=== PATIENT | female | born 1945 | race Caucasian/White ===

== ENCOUNTER 2016-12-05 13:31 | Emergency (ER) ==
[2016-12-05 13:42] VITALS: BP 149/79; TEMP 98.3; BMI 32.2
--- NOTE | 2016-12-05 13:51 | ED.PDOC ---
General ED Provider: Dr. TICO CASAS JR Chief Complaint: Back Pain Stated Complaint: COMPLAINS OF THORACIC BACK PAIN RADIATING AROUND TO RIGHT UPPER ABDOMEN. STATES SHE HAS BEEN HAVING ABDOMEN DISTENSION AND SAW DERRICK AT THE CLINIC, WAS SUPPOSED TO HAVE A CT DONE AND MISSED HER APPT. HAS BEEN TAKING FLEXERIL FOR THE BACK [ End ]since 11/24/16 98.3 110 20 93% 147/79 10 right back pain radiating to side[ End ] Time Seen by Physician: 13:51 Mode of Arrival: Wheelchair Information Source: Patient Exam Limitations: No limitations Primary Care Provider: KEYONA DEVI Nursing and Triage Documentation Reviewed and Agree: No Review of Systems - Review Of Systems Constitutional: Reports: No symptoms Eyes: Reports: No symptoms Ears, Nose, Mouth, Throat: Reports: No symptoms Respiratory: Reports: No symptoms Cardiac: Reports: No symptoms GI: Reports: No symptoms : Reports: No symptoms Musculoskeletal: Reports: Back pain (htn depr factor v leiden right ankle surg DRINKS 3-5 SHOTS OF VODKA A DAY ) Skin: Reports: No symptoms Neurological: Reports: No symptoms Endocrine: Reports: No symptoms Hematologic/Lymphatic: Reports: No symptoms All Other Systems: Other Past Medical History - Past Medical History Previously Healthy: No Endocrine: Reports: DM 2, Other (factor 5 leiden dx 2013) Cardiovascular: Reports: Hypertension, DVT (each leg) Respiratory: Reports: None, PE (each lung) Hematological: Reports: Other ( factor v leiden ) Gastrointestinal: Reports: None Genitourinary: Reports: None Neuro/Psych: Reports: None, Depression Musculoskeletal: Reports: None Cancer: Reports: None Last Menstrual Period: NONE - Surgical History General Surgical History: Reports: Orthopedic (right ankle surg ), Unknown (on warfarin) - Family History Family History: Reports: Unknown - Social History Smoking Status: Current every day smoker Hx Substance Use: No Alcohol Screening: Occasionally (DRINKS 3-5 SHOTS OF VODKA A DAY) Physical Exam - Physical Exam Appearance: Ill-appearing Pain Distress: Moderate Eyes: FABBY, EOMI, Conjunctiva clear ENT: Ears normal, Nose normal, Oropharynx normal Neck: Supple Respiratory: Airway patent, Breath sounds clear, Breath sounds equal, Respirations nonlabored Cardiovascular: RRR, Pulses normal, No rub, No murmur GI/: Soft, No masses, Bowel sounds normal, No Organomegaly, Tender Musculoskeletal: Normal strength, ROM intact, No edema, No calf tenderness Skin: Warm, Dry, Normal color Neurological: Sensation intact, Motor intact, Reflexes intact, Cranial nerves intact, Alert, Oriented Psychiatric: Affect appropriate, Mood appropriate Critical Care Note - Critical Care Note Total Time (mins): 0 Course - Course Hematology/Chemistry: 12/05/16 14:07 12/05/16 14:07 Orders, Labs, Meds: Lab Review 12/05/16 12/05/16 14:07 15:40 WBC 9.09 RBC 4.39 Hgb 14.7 Hct 41.7 MCV 95.0 MCH 33.5 H MCHC 35.3 RDW Coeff of Violeta 13.8 Plt Count 383 Immature Gran % (Auto) 0.8 Neut % (Auto) 53.9 Lymph % (Auto) 37.3 [place] % (Auto) 7.3 Eos % (Auto) 0.0 Baso % (Auto) 0.7 Immature Gran # (Auto) 0.1 Neut # 4.9 Lymph # 3.4 [place] # 0.7 Eos # 0.0 Baso # 0.1 PT 31.7 H INR 3.08 Sodium 132 L Potassium 4.4 Chloride 94 L Carbon Dioxide 25 Anion Gap 17.4 BUN 37 H Creatinine 0.93 Estimated GFR (MDRD) 60.00 BUN/Creatinine Ratio 39.78 Glucose 83 Calcium 9.3 Total Bilirubin 0.29 AST 14 L ALT 11 L Alkaline Phosphatase 109 Total Protein 7.3 Albumin 3.6 Globulin 3.7 Albumin/Globulin Ratio 0.97 Amylase 40 Lipase 24 Urine Color Yellow Urine Clarity Cloudy Urine pH 5.0 Ur Specific [place] <=1.005 Urine Protein Negative Urine Glucose (UA) Negative Urine Ketones Negative Urine Blood 1+ Urine Nitrite Negative Urine Bilirubin Negative Urine Urobilinogen 0.2 Ur Leukocyte Esterase Trace Urine Microscopic WBC 2-5 Ur Squamous Epith Cells 20-30 Urine Bacteria 1+ Orders Category Date Time Status NPO REMINDER: IMAGING ONCE CARE 12/05/16 13:59 Completed ED IV/MEDIPORT/POWERPORT .ONCE EMERGENCY 12/05/16 13:57 Active AMYLASE Stat LAB 12/05/16 14:07 Completed CBC W/ AUTO DIFF Stat LAB 12/05/16 14:07 Completed COMPREHENSIVE METABOLIC PANEL Stat LAB 12/05/16 14:07 Completed LIPASE Stat LAB 12/05/16 14:07 Completed PT WITH INR Stat LAB 12/05/16 14:07 Completed URINALYSIS C & S IF INDICATED Stat LAB 12/05/16 15:40 Completed URINE CULTURE Stat LAB 12/05/16 15:40 Received 0.9 % Sodium Chloride [Saline Flush] MEDS 12/05/16 13:57 Discontinued 1 syr IVF PRN PRN Morphine Sulfate [Morphine 4 mg/ml Syringe] MEDS 12/05/16 16:34 Discontinued 4 mg IVP ONCE STA Ondansetron HCl/Pf [Zofran 4 mg/2 ml] MEDS 12/05/16 16:34 Discontinued 4 [address] IVP ONCE STA CT ABDOMEN/PELVIS W/WO CONTRAS Stat RADS 12/05/16 13:58 Completed Medications Discontinued Medications Generic Name Dose Route Start Last Admin Trade Name Freq PRN Reason Stop Dose Admin Morphine Sulfate 4 mg 12/05/16 16:34 12/05/16 17:03 Morphine 4 Mg/Ml Syringe IVP 12/05/16 16:35 4 mg ONCE STA Administration Ondansetron HCl 4 mg 12/05/16 16:34 12/05/16 17:03 Zofran 4 Mg/2 Ml IVP 12/05/16 16:35 4 mg ONCE STA Administration Sodium Chloride 1 syr 12/05/16 13:57 12/05/16 17:04 Saline Flush IVF 1 syr PRN PRN Administration To flush IV Vital Signs: Temp Pulse Resp BP Pulse Ox 12/05/16 13:33 98.3 F 110 H 20 149/79 H 93 L Departure - Departure Time of Disposition: 16:56 Disposition: HOME SELF-CARE Discharge Problem: Abdominal pain Instructions: Acute Abdominal Pain (ED) Condition: Good Pt referred to PMD for follow-up: Yes Additional Instructions: no kidney stones on CAT scan inflammation on left side will need repeat xrays when improved may continue macrobid few white cells present in urine continue extra clear liquid daily may use norco for pain with norco recommend daily stool softener Prescriptions: Hydrocodone Bit/Acetaminophen [[place] 5-325] 1 - 2 tab PO Q6HR PRN #12 tablet PRN Reason: pain Docusate Sodium [Colace] 100 mg PO DAILY #30 capsule Allergies/Adverse Reactions: Allergies No Known Allergies Allergy (Verified 12/05/16 13:40) Home Medications: Ambulatory Orders Citalopram Hydrobromide [Citalopram HBr] 40 mg PO DAILY 04/16/15 Lisinopril/Hydrochlorothiazide [Lisinopril-Hctz 10-12.5 mg Tab] 10 mg PO DAILY 04/16/15 Warfarin Sodium [Coumadin] 5 mg PO EVERY OTHER DAY 04/16/15 Warfarin Sodium [Coumadin] 6 mg PO EVERY OTHER DAY 04/16/15 Cholecalciferol (Vitamin D3) [Vitamin D] 50,000 unit PO WE 12/05/16 Docusate Sodium [Colace] 100 mg PO DAILY #30 capsule 12/05/16 Hydrocodone Bit/Acetaminophen [[place] 5-325] 1 - 2 tab PO Q6HR PRN #12 tablet Nitrofurantoin Monohyd/M-Cryst [Macrobid] 100 mg PO BID 12/05/16 Olanzapine [Zyprexa] 2.5 mg PO DAILY 12/05/16
[2016-12-05 14:16] LABS: BASOPHILS # (AUTO) 0.1 K/uL (0-0.2); BASOPHILS % (AUTO) 0.7 % (0.0-3.0); HEMATOCRIT 41.7 % (37.0-47.0); HEMOGLOBIN 14.7 g/dl (12.0-16.0); IMMATURE GRANULOCYTE % (AUTO) 0.8 % (0.0-5.0); LYMPHOCYTES # (AUTO) 3.4 K/uL (0.60-3.4); LYMPHOCYTES % (AUTO) 37.3 (10.0-50.0); MEAN CORPUSCULAR HEMOGLOBIN 33.5 pg (27.0-31.0); MEAN CORPUSCULAR HGB CONC 35.3 (31.8-35.4); MONOCYTES # (AUTO) 0.7 K/uL (0.4-2.0); MONOCYTES % (AUTO) 7.3 (0-10); NEUTROPHILS # (AUTO) 4.9 K/ul (2.0-6.9); NEUTROPHILS % (AUTO) 53.9; PLATELET COUNT 383 10^3/uL (140-440); RED BLOOD COUNT 4.39 10^6/ul (4.20-5.40); WHITE BLOOD COUNT 9.09 K/ul (4.6-10.2)
[2016-12-05 14:30] LABS: PROTHROMBIN TIME 31.7 SEC (9.3-11.0)
[2016-12-05 14:34] LABS: ALBUMIN 3.6 g/dL (3.4-5.0); ALBUMIN/GLOBULIN RATIO 0.97; ANION GAP 17.4; BILIRUBIN,TOTAL 0.29 mg/dL (0.00-1.20); BUN/CREATININE RATIO 39.78; CALCIUM 9.3 mg/dL (8.2-10.2); CREATININE 0.93 mg/dL (0.60-1.30); POTASSIUM 4.4 mmol/L (3.5-5.10); TOTAL PROTEIN 7.3 g/dL (5.8-8.1)
--- NOTE | 2016-12-05 15:38 | CT ---
Exam: Noncontrasted CT examination of the abdomen and pelvis followed by contrasted CT examination of the abdomen and pelvis. Comparison: 06/27/2010. Reason for exam: Right flank pain into abdomen with abdominal swelling. FINDINGS: Ground-glass / inflammatory changes in the left lower lobe seen on axial image #2. No fo ochoa consolidation or pleural effusion is seen in the partially imaged lung bases. The heart does not appear enlarged. The liver is unremarkable without intrahepatic mass lesion or intrahepatic ductal dilatation. The sp viri, adrenal glands, gallbladder, and pancreas are unremarkable. No hydronephrosis, hydroureter, o r nephrolithiasis. There are multiple loops of nondilated fluid filled small bowel seen throughout the abdomen. The ap pendix is unremarkable. No inflammatory changes are seen within the mesenteric fat. No intra-abdom inal free air or pelvic free fluid. The bladder is unremarkable. There is a small only fat containing periumbilical hernia. Age indeterminate vertebral body height loss at T11 and L1. There is vacuum disc phenomenon at L5-S 1. Impression: 1. No acute imaging findings are seen to explain the patient's symptomology. 2. Ground-glass / inflammatory changes in the left lower lobe. Recommend follow up imaging to docu ment stability / resolution.
[2016-12-05 16:04] LABS: BILIRUBIN,URINE Negative (NEGATIVE); KETONES,URINE Negative (NEGATIVE); LEUKOCYTE ESTERASE ,URINE Trace (NEGATIVE); NITRITE,URINE Negative (NEGATIVE); PROTEIN,URINE Negative (NEGATIVE); URINE, BLOOD 1+ (NEGATIVE)
[2016-12-05 16:13] LABS: ADD URINE MICROSCOPIC YES
[2016-12-05 16:16] LABS: BACTERIA,URINE 1+ (NOT PRESENT)
[2016-12-05] MEDS ORDERED: ZOFRAN 4 MG/2 ML IVP STA (16:34)
[2016-12-05] MEDS ORDERED: MORPHINE 4 MG/ML SYRINGE IVP STA (16:34)
== END 2016-12-05 17:36 | disposition home or self-care (01) ==
LOC: ED 13:31
DX: R10.11 Right upper quadrant pain (principal); M54.6 Pain in thoracic spine; R14.0 Abdominal distension (gaseous); E11.9 Type 2 diabetes mellitus without complications; I10 Essential (primary) hypertension; D68.51 Activated protein C resistance; Z86.718 Personal history of other venous thrombosis and embolism; Z79.01 Long term (current) use of anticoagulants; Z86.711 Personal history of pulmonary embolism; F17.210 Nicotine dependence, cigarettes, uncomplicated; Z79.899 Other long term (current) drug therapy
CPT/HCPCS: 36415; 80053; 81001; 82150; 83690; 85025; 85610; 87086; 96374; 96375; 99283

== ENCOUNTER 2017-01-01 08:56 | Outpatient (CLI) ==
--- NOTE | 2017-01-01 10:23 | CT ---
EXAM: CT of the chest with and without contrast History: Chest pain, distended stomach. Comparison: CT abdomen pelvis 12/05/2016, chest CT 09/22/2012 Technique: Multiplanar CT images through the thorax were obtained with and without the administrati on of IV contrast Findings: Heart size is within normal limits. No pericardial effusion. No pathologically enlarged thoracic lymph nodes. Biapical lung scarring. Scattered areas of subsegmental atelectasis. Minima l patchy right lung ground-glass infiltrates with 5-6 mm micronodules. 5 mm left upper lobe micronod ule Within the visualized upper abdomen, the liver is probably fatty. Tiny hiatal hernia. Mild compress ion deformity again seen at L1. Increased loss of height involving the T11 burst fracture and there is a new compression fracture involving the superior endplate of T9. Impression: 1. Minimal patchy right lung ground-glass infiltrates with associated micronodules could be infecti ous/inflammatory but recommend followup to document resolution. 5 mm left upper lobe micronodule al so warrants followup. 2. Small hiatal hernia. 3. Increased loss of height involving the T11 burst fracture and there is a new compression fractur e involving superior endplate of T9.
--- NOTE | 2017-01-01 11:29 | MAMMO ---
EXAM: Bilateral digital screening mammogram History: Screening Comparison: Bilateral mammogram 10/16/2012 Findings: MLO and CC views of bilateral breasts demonstrate scattered fibroglandular breast parench yma. Stable benign bilateral breast calcifications and left breast nodules. Biopsy clip again seen within the left breast No developing masses and no suspicious microcalcifications. Impression: Benign stable mammogram. Recommend followup routine screening mammography in 1 year. BIRADS 2
== END 2017-01-01 08:57 | disposition home or self-care (01) ==
LOC: RAD 08:56
PROVIDERS: ATTEND Physician Assistant
DX: Z12.31 Encounter for screening mammogram for malignant neoplasm of breast (principal); R93.8 Abnormal findings on diagnostic imaging of other specified body structures

== ENCOUNTER 2017-01-05 12:06 | Emergency (ER) ==
[2017-01-05 12:13] VITALS: BP 147/84; TEMP 98.3; BMI 32.4
[2017-01-05 12:51] LABS: BASOPHILS # (AUTO) 0.1 K/uL (0-0.2); BASOPHILS % (AUTO) 0.6 % (0.0-3.0); HEMATOCRIT 39.5 % (37.0-47.0); HEMOGLOBIN 13.9 g/dl (12.0-16.0); IMMATURE GRANULOCYTE % (AUTO) 1.1 % (0.0-5.0); LYMPHOCYTES # (AUTO) 3.5 K/uL (0.60-3.4); LYMPHOCYTES % (AUTO) 31.5 (10.0-50.0); MEAN CORPUSCULAR HEMOGLOBIN 33.5 pg (27.0-31.0); MEAN CORPUSCULAR HGB CONC 35.2 (31.8-35.4); MEAN CORPUSCULAR VOLUME 95.2 fl (81.0-99.0); MONOCYTES # (AUTO) 0.9 K/uL (0.4-2.0); MONOCYTES % (AUTO) 8.2 (0-10); NEUTROPHILS # (AUTO) 6.6 K/ul (2.0-6.9); NEUTROPHILS % (AUTO) 58.6; PLATELET COUNT 367 10^3/uL (140-440); RED BLOOD COUNT 4.15 10^6/ul (4.20-5.40)
[2017-01-05 13:10] LABS: ALBUMIN 3.5 g/dL (3.4-5.0); ALBUMIN/GLOBULIN RATIO 0.95; ANION GAP 16.2; BILIRUBIN,TOTAL 0.51 mg/dL (0.00-1.20); BUN/CREATININE RATIO 20.68; CALCIUM 9.2 mg/dL (8.2-10.2); CREATININE 0.87 mg/dL (0.60-1.30); POTASSIUM 4.2 mmol/L (3.5-5.10); TOTAL PROTEIN 7.2 g/dL (5.8-8.1)
[2017-01-05 13:41] LABS: PARTIAL THROMBOPLASTIN TIME 51.2 SEC (23.9-40.0)
[2017-01-05 13:43] LABS: PROTHROMBIN TIME 32.3 SEC (9.3-11.0)
--- NOTE | 2017-01-05 15:08 | CT ---
EXAM: CT head without contrast 04/06/2017. Sagittal and coronal reformatted images obtained HISTORY: Trauma COMPARISON: None. FINDINGS: There is no evidence of intracranial hemorrhage. The midline is maintained. There is no hydrocephalus. No cerebellar tonsillar ectopia. Evaluation of the calvarium shows no fracture. The mastoid air cells are normally pneumatized. IMPRESSION: Left periorbital and facial soft tissue swelling. This is only partially visualized. C T facial bones could be considered if clinically indicated. No acute intracranial abnormality.
--- NOTE | 2017-01-05 15:12 | CT ---
Exam: CT of the thoracic spine without intravenous contrast administration. Comparison: CT of the chest performed 01/01/2017. CT of the abdomen pelvis performed 12/05/2016. Reason for exam: Pain. FINDINGS: Similar appearing compression deformities in the lower thoracic spine at T9, T11, and L1. No new fracture or listhesis. The imaged osseous structures are diffusely osteopenic. There is mi ld central canal narrowing at the T10-11 interspace. Mild basilar atelectasis. Atherosclerotic dise ase is seen within the aorta. The articulating facets are intact. There is exaggeration of the thoracic kyphosis. Impression: 1. Similar appearing compression deformities in the thoracic spine at T9, T11, and L1. There not si gnificantly changed when compared to the CT examination of the chest performed on 01/01/2017. 2. Mild central canal narrowing at the T11 interspace. If clinical concern exists, MRI may be perf ormed. 3. No new fracture or listhesis in the thoracic spine. Report faxed to [phone] hours on 01/05/2017
--- NOTE | 2017-01-05 15:13 | CT ---
EXAM: CT of the abdomen pelvis with contrast History: Abdominal trauma. Comparison: CT abdomen pelvis 12/05/2016, chest CT 01/05/2017 Technique: Multiplanar CT images through the abdomen pelvis were obtained following administration of IV contrast Findings: A few small nodules seen within the visualized lower lungs. Subsegmental atelectasis see n at the lung bases. Please see dedicated chest CT done on the same day. Stable chronic compression fracture at L1. T11 compression fracture again noted with slight interval progression. There is a new mild compression fracture of T9. No discrete gallstones identified by CT. No focal liver or splenic lesions. Pancreas is unremarkab le. Atherosclerotic vascular calcifications. Adrenal glands are within normal limits. Kidneys are unremarkable. No bowel obstruction. Appendix is normal. No free air. No ascites. No bladder wa ll thickening. Atrophic uterus. No perirectal inflammation. Impression: 1. No acute intra-abdominal or pelvic process. 2. New compression fracture at T9. Progressive compression deformity at T11.
--- NOTE | 2017-01-05 15:13 | CT ---
EXAM: CT cervical spine. HISTORY: Trauma. TECHNIQUE: CT cervical spine without contrast. Detailed axial sections. Coronal and sagittal re-f ormations. COMPARISON: None FINDINGS: No fracture is identified. No loss of vertebral body height. Facet joints are covered. Lateral mas ses of C1 and C2 are normally aligned and the odontoid process is intact. There is diffuse degenera tive disc and facet disease, severe at some levels. There is mild anterior spondylolisthesis of C3 on C4 by about 0.2 cm possibly related to the regional severe facet arthropathy. The degenerative c hanges lead to multilevel central canal and neural foraminal stenosis which is relatively mild regar ding the central canals. The neural foramina at least on the right have moderate narrowing extendin g from C3 through approximately C5. The upper lung christy reveal irregular pleuroparenchymal thicke lawrence in the apices which may be related to fibrosis. Paraspinal soft tissues have no evidence of fl uid collection or inflammation. IMPRESSION: 1. No acute fracture identified. 2. Mild anterior subluxation of C3 on C4 by about 0.2 cm possibly related to the regional severe fa cet arthropathy.
--- NOTE | 2017-01-05 15:18 | CT ---
EXAM: CT of the maxillofacial region without contrast History: Facial trauma. Comparison: Head CT 01/05/2017 Technique: Multiplanar CT images through the maxillofacial region were obtained without the adminis tration of IV contrast Findings: Subcutaneous left cheek hematoma measuring 2.3 cm x 1.8 cm with significant surrounding i nflammation. There is left periorbital edema. The inflammation extends down the left side of the n geno and around the left submandibular gland and to the deeper fascial planes. Orbits are intact. Mild mucosal thickening of the paranasal sinuses. Nasal septum is bowed to the left. Bilateral ost iomeatal units are not occluded. Degenerative changes of the left mandibular joint. No fractures a re seen. Mastoid air cells are clear. Osteopenia. Degenerative changes of the cervical spine. Impression: 1. No acute fracture. 2. Left cheek subcutaneous hematoma. There is also extensive subcutaneous edema and inflammation o f the left face extending into the left neck region.
--- NOTE | 2017-01-05 15:19 | CT ---
EXAM: CT chest with intravenous contrast 01/05/2017. Sagittal and coronal reformatted images obtai jenelle HISTORY: Trauma COMPARISON: 01/05/2017, 01/01/2017 FINDINGS: The heart size appears within normal limits. No pericardial effusion. Bilateral apical scarring appears stable. There are scattered areas of ground-glass density with ass ociated micro nodules. This is unchanged as compared to examination performed 01/01/2017. This is likely infectious/inflammatory however follow-up recommend to document resolution. There is no pulmonary consolidation. No pleural effusion or pneumothorax. There are multiple partial compression fractures within the thoracic and lumbar spine. Please refer to report of CT thoracic spine for further evaluation. IMPRESSION: 1. No acute post traumatic cardiopulmonary process. No acute mediastinal vascular injury. 2. Multifocal atelectasis and scarring. 3. Scattered areas of ground-glass density with associated micro nodules. This was described on th e recent chest CT. This is indeterminate however likely infectious/inflammatory. Follow-up CT kvng mmend following appropriate medical management to document stability / resolution. 4. Multiple compression fractures of the spine. Please refer to report of CT thoracic spine and CT lumbar spine for further evaluation.
--- NOTE | 2017-01-05 15:21 | CT ---
Exam: CT exam of the lumbar spine without intravenous contrast. Comparison: 01/05/2017. Reason for exam: Pain. FINDINGS: Multilevel degenerative disease in the lumbar spine. There is similar appearing compress ion deformities at T11 and L1. Intervertebral body disc space height loss with vacuum disc phenomen on and L5, S1, not significantly changed from prior imaging. There is relative maintenance of the l umbar lordotic curve. Atherosclerotic disease is seen within the abdominal aorta. T10-T11: Mild central canal narrowing secondary to a similar appearing compression deformity in the T11 vertebral body. There is moderate foraminal stenosis secondary to facet hypertrophy. T11-T12: Small broad-based disc bulge with mild central canal narrowing. There is minimal foramina l stenosis secondary to facet hypertrophy and extruded disc. T12-L1: Small broad-based disc bulge with mild central canal narrowing and a similar appearing comp ression deformity of the L1 vertebral body. There is mild bilateral foraminal stenosis secondary to facet hypertrophy and extruded disc. L1-L2: Small broad-based disc bulge without significant central canal stenosis. There is mild to m oderate foraminal narrowing secondary to facet hypertrophy and compression deformity. L2-L3: Broad-based disc bulge with mild central canal narrowing and bilateral mild foraminal stenos is secondary to the extruded disc. L3-L4: Similar appearing anterior listhesis of L3 on L4 with mild to moderate central canal narrowi ng and foraminal stenosis secondary to extruded disc and facet hypertrophy. L4-L5: Small broad-based disc bulge with central canal narrowing and mild bilateral foraminal steno sis secondary to extruded disc and facet hypertrophy. L5-S1: Small broad-based disc bulge with central canal narrowing and moderate narrowing of the bila teral foramina secondary to extruded disc and facet hypertrophy. Impression: 1. Multilevel degenerative disease as described with central canal narrowing and foraminal stenosis. If clinical concern exists, MRI may be performed. 2. Similar appearing compression deformities at L1 and T11. There are not significantly changed wh en compared to the previous CT exam performed on 01/05/2017. 3. Atherosclerotic disease. 4. No new fracture or listhesis. Report faxed at [phone] hours on 01/05/2017.
--- NOTE | 2017-01-05 15:34 | ED.PDOC ---
General ED Provider: Dr. FARAZ GASTELUM Chief Complaint: Fall Stated Complaint: FALL FACIAL INJURY Time Seen by Physician: 12:06 (FELL 2 DAYS AGO NO L.O.C. ON COUMADIN) Mode of Arrival: Wheelchair Information Source: Patient Exam Limitations: No limitations Primary Care Provider: KOJO MCINTYRE Nursing and Triage Documentation Reviewed and Agree: Yes Trauma/Injury Complaint Exam - Trauma Complaint/Exam Location of Pain or Injury: Reports: Head, Face, Neck, Back Mechanism of Injury: Reports: Fall Onset/Duration: 2 DAYS SEE PHOTOS OF INJURY ON WARFARIN Symptoms Are: Still present Review of Systems - Review Of Systems Constitutional: Reports: No symptoms Eyes: Reports: No symptoms Ears, Nose, Mouth, Throat: Reports: Ear pain (FACIAL HEMATOMA SEE PHOTOS) Respiratory: Reports: No symptoms Cardiac: Reports: No symptoms GI: Reports: No symptoms : Reports: No symptoms Musculoskeletal: Reports: Back pain, Neck pain Skin: Reports: No symptoms Neurological: Reports: No symptoms Endocrine: Reports: No symptoms Hematologic/Lymphatic: Reports: No symptoms All Other Systems: Reviewed and Negative Past Medical History - Past Medical History Previously Healthy: No Endocrine: Reports: DM 2, Other (factor 5 leiden dx 2013) Cardiovascular: Reports: Hypertension, DVT (each leg) Respiratory: Reports: None, PE (each lung) Hematological: Reports: Other ( factor v leiden ) Gastrointestinal: Reports: None Genitourinary: Reports: None Neuro/Psych: Reports: None, Depression Musculoskeletal: Reports: None Cancer: Reports: None Last Menstrual Period: menopause Other Pertinent Past Medical History: htn depr factor v leiden right ankle surg - Surgical History General Surgical History: Reports: Orthopedic (right ankle surg ), Unknown (on warfarin) - Family History Family History: Reports: Unknown - Social History Smoking Status: Current every day smoker, Heavy tobacco smoker Hx Substance Use: No Alcohol Screening: Occasionally Physical Exam - Physical Exam Appearance: Well-appearing, No pain distress, Well-nourished Eyes: FABBY, EOMI (SUBCONJUCTIVAL HEMORRAGHE , PERRLA , EOMI , ) ENT: Ears normal, Nose normal, Oropharynx normal (FACIAL HEMATOMA PLEASE SEE PHOTOS) Respiratory: Airway patent, Breath sounds clear, Breath sounds equal, Respirations nonlabored Cardiovascular: RRR, Pulses normal, No rub, No murmur GI/: Soft, Nontender, No masses, Bowel sounds normal, No Organomegaly Musculoskeletal: Normal strength, ROM intact, No edema, No calf tenderness Skin: Warm, Dry, Normal color Neurological: Sensation intact, Motor intact, Reflexes intact, Cranial nerves intact, Alert, Oriented Psychiatric: Affect appropriate, Mood appropriate Interpretation - Radiology Interpretation Radiology Interpretation By: Radiologist Radiology Results: No acute changes Critical Care Note - Critical Care Note Total Time (mins): 0 Course - Course Hematology/Chemistry: 01/05/17 12:40 01/05/17 12:40 Orders, Labs, Meds: Lab Review 01/05/17 12:40 WBC 11.20 H RBC 4.15 L Hgb 13.9 Hct 39.5 MCV 95.2 MCH 33.5 H MCHC 35.2 RDW Coeff of Violeta 14.4 Plt Count 367 Immature Gran % (Auto) 1.1 Neut % (Auto) 58.6 Lymph % (Auto) 31.5 Bell % (Auto) 8.2 Eos % (Auto) 0.0 Baso % (Auto) 0.6 Immature Gran # (Auto) 0.1 Neut # 6.6 Lymph # 3.5 H Bell # 0.9 Eos # 0.0 Baso # 0.1 PT 32.3 H INR 3.14 APTT 51.2 H Sodium 130 L Potassium 4.2 Chloride 91 L Carbon Dioxide 27 Anion Gap 16.2 BUN 18 Creatinine 0.87 Estimated GFR (MDRD) 65.00 BUN/Creatinine Ratio 20.68 Glucose 100 Calcium 9.2 Total Bilirubin 0.51 AST 14 L ALT 9 L Alkaline Phosphatase 110 Total Protein 7.2 Albumin 3.5 Globulin 3.7 Albumin/Globulin Ratio 0.95 Orders Category Date Time Status NPO REMINDER: IMAGING ONCE CARE 01/05/17 12:41 Completed CBC W/ AUTO DIFF Stat LAB 01/05/17 12:40 Completed COMPREHENSIVE METABOLIC PANEL Stat LAB 01/05/17 12:40 Completed PARTIAL THROMBOPLASTIN TIME Stat LAB 01/05/17 12:40 Completed PT WITH INR Stat LAB 01/05/17 12:[address] ABDOMEN/PELVIS W CONTRAST Stat RADS 01/05/17 12:[address] CERVICAL SPINE W/O CONTRAST Stat RADS 01/05/17 12:[address] CHEST W/CONTRAST Stat RADS 01/05/17 12:[address] HEAD W/O CONTRAST Stat RADS 01/05/17 12:[address] LUMBAR SPINE W/O CONTRAST Stat RADS 01/05/17 12:[address] MAXILLOFACIAL W/O CONTRAST Stat RADS 01/05/17 12:[address] THORACIC SPINE W/O CONTRAST Stat RADS 01/05/17 12:42 Completed Vital Signs: Temp Pulse Resp BP Pulse Ox 01/05/17 12:06 98.3 F 101 H 20 147/84 H 97 Departure - Departure Time of Disposition: 15:41 Disposition: HOME SELF-CARE Discharge Problem: Facial hematoma Qualifiers: Encounter type: initial encounter Qualifier Code: ([id number]) Contusion of other part of head, initial encounter Compression fracture of thoracic vertebra Qualifiers: Encounter type: initial encounter Instructions: Hematoma (ED), Facial Contusion (ED) Condition: Good Pt referred to PMD for follow-up: No Additional Instructions: Please call your Family Physician as soon as possible to schedule a follow-up appointment. HIGHLY SUGGEST YOU OBTAIN MRI OF THORACIC AND LUMBAR SPINE Allergies/Adverse Reactions: Allergies No Known Allergies Allergy (Verified 01/05/17 12:16) Home Medications: Ambulatory Orders Citalopram Hydrobromide [Citalopram HBr] 40 mg PO DAILY 04/16/15 Lisinopril/Hydrochlorothiazide [Lisinopril-Hctz 10-12.5 mg Tab] 10 mg PO DAILY 04/16/15 Warfarin Sodium [Coumadin] 5 mg PO EVERY OTHER DAY 04/16/15 Warfarin Sodium [Coumadin] 6 mg PO EVERY OTHER DAY 04/16/15 Cholecalciferol (Vitamin D3) [Vitamin D] 50,000 unit PO WE 12/05/16 Disposition Discussed With: Patient
[2017-01-05] MEDS ORDERED: MORPHINE 4 MG/ML SYRINGE IM STA (15:53)
== END 2017-01-05 16:25 | disposition home or self-care (01) ==
LOC: ED 12:06
DX: S00.83XA Contusion of other part of head, initial encounter (principal); S22.009A Unspecified fracture of unspecified thoracic vertebra, initial encounter for closed fracture; H11.30 Conjunctival hemorrhage, unspecified eye; M54.9 Dorsalgia, unspecified; M54.2 Cervicalgia; F17.210 Nicotine dependence, cigarettes, uncomplicated; W19.XXXA Unspecified fall, initial encounter; Z79.01 Long term (current) use of anticoagulants
CPT/HCPCS: 36415; 80053; 85025; 85610; 85730; 96372; 99284

== ENCOUNTER 2017-01-19 13:11 | Outpatient (CLI) ==
[2017-01-19 13:39] LABS: BASOPHILS # (AUTO) 0.1 K/uL (0-0.2); BASOPHILS % (AUTO) 0.5 % (0.0-3.0); HEMATOCRIT 42.2 % (37.0-47.0); HEMOGLOBIN 14.9 g/dl (12.0-16.0); IMMATURE GRANULOCYTE % (AUTO) 0.9 % (0.0-5.0); LYMPHOCYTES % (AUTO) 26.9 (10.0-50.0); MEAN CORPUSCULAR HEMOGLOBIN 33.9 pg (27.0-31.0); MEAN CORPUSCULAR HGB CONC 35.3 (31.8-35.4); MEAN CORPUSCULAR VOLUME 96.1 fl (81.0-99.0); MONOCYTES % (AUTO) 8.7 (0-10); PLATELET COUNT 405 10^3/uL (140-440); RED BLOOD COUNT 4.39 10^6/ul (4.20-5.40); WHITE BLOOD COUNT 11.04 K/ul (4.6-10.2)
[2017-01-19 14:01] LABS: BILIRUBIN,URINE 1+ (NEGATIVE); KETONES,URINE Negative (NEGATIVE); LEUKOCYTE ESTERASE ,URINE Negative (NEGATIVE); NITRITE,URINE Negative (NEGATIVE); PROTEIN,URINE Negative (NEGATIVE); URINE, BLOOD 2+ (NEGATIVE)
[2017-01-19 14:04] LABS: ADD URINE MICROSCOPIC YES
[2017-01-19 14:09] LABS: BACTERIA,URINE TRACE (NOT PRESENT)
[2017-01-20 07:16] LABS: URINE CREATINE 189.5 mg/dL (Not Estab.)
== END 2017-01-19 13:12 | disposition home or self-care (01) ==
LOC: LAB 13:11
PROVIDERS: ATTEND Internal Medicine Nephrology
DX: Z51.81 Encounter for therapeutic drug level monitoring (principal); Z79.01 Long term (current) use of anticoagulants; D69.8 Other specified hemorrhagic conditions; N18.3 Chronic kidney disease, stage 3 (moderate); I10 Essential (primary) hypertension
CPT/HCPCS: 36415; 81001; 82570; 84156; 85025; 85610; 87205

== ENCOUNTER 2017-01-19 15:53 | Emergency (ER) ==
[2017-01-19 15:59] VITALS: BP 104/69; TEMP 98.3; BMI 31.4
[2017-01-19 16:51] LABS: BASOPHILS # (AUTO) 0.1 K/uL (0-0.2); BASOPHILS % (AUTO) 0.5 % (0.0-3.0); HEMATOCRIT 41.1 % (37.0-47.0); HEMOGLOBIN 14.5 g/dl (12.0-16.0); LYMPHOCYTES # (AUTO) 3.5 K/uL (0.60-3.4); LYMPHOCYTES % (AUTO) 26.9 (10.0-50.0); MEAN CORPUSCULAR HEMOGLOBIN 33.6 pg (27.0-31.0); MEAN CORPUSCULAR HGB CONC 35.3 (31.8-35.4); MEAN CORPUSCULAR VOLUME 95.1 fl (81.0-99.0); MONOCYTES # (AUTO) 1.1 K/uL (0.4-2.0); MONOCYTES % (AUTO) 8.3 (0-10); NEUTROPHILS # (AUTO) 8.1 K/ul (2.0-6.9); NEUTROPHILS % (AUTO) 63.3; PLATELET COUNT 372 10^3/uL (140-440); RED BLOOD COUNT 4.32 10^6/ul (4.20-5.40); WHITE BLOOD COUNT 12.82 K/ul (4.6-10.2)
[2017-01-19 17:06] LABS: OCCULT BLOOD INTERNAL QC 1 INTERNAL QC VALID; OCCULT BLOOD SAMPLE 1 NEGATIVE (NEGATIVE); OCCULT BLOOD SAMPLE 2 NO SPECIMEN RECEIVED (NEGATIVE)
[2017-01-19 17:07] LABS: OCCULT BLOOD INTERNAL QC 2 INTERNAL QC VALID; OCCULT BLOOD INTERNAL QC 3 INTERNAL QC VALID; OCCULT BLOOD SAMPLE 3 NO SPECIMEN RECEIVED (NEGATIVE)
[2017-01-19 17:13] LABS: ALBUMIN 3.6 g/dL (3.4-5.0); ALBUMIN/GLOBULIN RATIO 1.06; ANION GAP 18.4; BILIRUBIN,TOTAL 0.39 mg/dL (0.00-1.20); BUN/CREATININE RATIO 25.49; CALCIUM 9.3 mg/dL (8.2-10.2); CREATININE 1.02 mg/dL (0.60-1.30); POTASSIUM 3.4 mmol/L (3.5-5.10)
[2017-01-19 17:20] LABS: PROTHROMBIN TIME 100.1 SEC (9.3-11.0)
[2017-01-19 17:22] LABS: PARTIAL THROMBOPLASTIN TIME 81.9 SEC (23.9-40.0)
[2017-01-19] MEDS ORDERED: SODIUM CHLORIDE 1,000 ML IV SCH (17:30)
--- NOTE | 2017-01-19 17:36 | ED.PDOC ---
General ED Provider: Dr. FARAZ GASTELUM Chief Complaint: Abnormal Labs Stated Complaint: CRITICAL LAB VALUES PT, PTT INR Time Seen by Physician: 16:00 Mode of Arrival: Walk-In Information Source: Patient Exam Limitations: No limitations Primary Care Provider: KOJO MCINTYRE Nursing and Triage Documentation Reviewed and Agree: Yes Miscellaneous Complaint Exam - Complex/Multi-System Complaint/Exam Onset/Duration: ONSET IS NOT ESTABLISHED , Symptoms Are: Still present Associated Signs and Symptoms: Denies: Decreased responsiveness, Confusion, Agitation, Dizziness, Weakness, Syncope, Headache, Short of air, Cough, Wheezing , Hemoptysis, Chest pain, Palpitations, Edema, Nausea, Vomiting, Diarrhea, Abdominal pain, Back pain, Dysuria, Hematemesis, Melena, Decreased oral intake, Fever, Diaphoresis, Immunocompromised, Anticoagulation Therapy, Recent medication changes, Indwelling medical administrative technician, Prior MRSA, Prior VRE, Recent trauma, Remote trauma Recent Echo/LV Function: No Respiratory Distress: None JVD Present: No Tachypnea Present: No Stridor Present: No Abdominal Findings: Present: Normal findings Glascow Coma Scale (see protocol): 15 Meningeal Signs Positive: No Focal Weakness: Present: None Focal Sensory Loss: Present: None Gait: Normal Gag Reflex Present: Yes Babinski Sign: Negative Right, Negative Left Review of Systems - Review Of Systems Constitutional: Reports: No symptoms Eyes: Reports: No symptoms Ears, Nose, Mouth, Throat: Reports: No symptoms Respiratory: Reports: No symptoms Cardiac: Reports: No symptoms GI: Reports: No symptoms : Reports: No symptoms Musculoskeletal: Reports: No symptoms Skin: Reports: Other Neurological: Reports: No symptoms Endocrine: Reports: No symptoms Hematologic/Lymphatic: Reports: No symptoms All Other Systems: Reviewed and Negative Past Medical History - Past Medical History Previously Healthy: No Endocrine: Reports: DM 2, Other (factor 5 leiden dx 2013) Cardiovascular: Reports: Hypertension, DVT (each leg) Respiratory: Reports: None, PE (each lung) Hematological: Reports: Other ( factor v leiden ) Gastrointestinal: Reports: None Genitourinary: Reports: None Neuro/Psych: Reports: None, Depression Musculoskeletal: Reports: None Cancer: Reports: None Last Menstrual Period: n/a Other Pertinent Past Medical History: htn depr factor v leiden right ankle surg - Surgical History General Surgical History: Reports: Orthopedic (right ankle surg ), Unknown (on warfarin) - Family History Family History: Reports: Unknown - Social History Smoking Status: Current every day smoker, Heavy tobacco smoker Hx Substance Use: No Alcohol Screening: Occasionally Physical Exam - Physical Exam Appearance: Well-appearing, No pain distress, Well-nourished Eyes: FABBY, EOMI, Conjunctiva clear ENT: Ears normal, Nose normal, Oropharynx normal Respiratory: Airway patent, Breath sounds clear, Breath sounds equal, Respirations nonlabored Cardiovascular: RRR, Pulses normal, No rub, No murmur GI/: Soft, Nontender, No masses, Bowel sounds normal, No Organomegaly Musculoskeletal: Normal strength, ROM intact, No edema, No calf tenderness Skin: Warm, Dry, Normal color Neurological: Sensation intact, Motor intact, Reflexes intact, Cranial nerves intact, Alert, Oriented Psychiatric: Affect appropriate, Mood appropriate Critical Care Note - Critical Care Note Total Time (mins): 0 Course - Course Hematology/Chemistry: 01/19/17 16:40 01/19/17 16:40 Orders, Labs, Meds: Lab Review 01/19/17 16:40 WBC 12.82 H RBC 4.32 Hgb 14.5 Hct 41.1 MCV 95.1 MCH 33.6 H MCHC 35.3 RDW Coeff of Violeta 14.2 Plt Count 372 Immature Gran % (Auto) 1.0 Neut % (Auto) 63.3 Lymph % (Auto) 26.9 [place] % (Auto) 8.3 Eos % (Auto) 0.0 Baso % (Auto) 0.5 Immature Gran # (Auto) 0.1 Neut # 8.1 H Lymph # 3.5 H [place] # 1.1 Eos # 0.0 Baso # 0.1 PT 100.1 H D INR 9.72 H* D APTT 81.9 H Sodium 130 L Potassium 3.4 L Chloride 96 L Carbon Dioxide 19 L Anion Gap 18.4 BUN 26 H Creatinine 1.02 Estimated GFR (MDRD) 54.00 BUN/Creatinine Ratio 25.49 Glucose 91 Calcium 9.3 Total Bilirubin 0.39 AST 20 ALT 12 Alkaline Phosphatase 109 Total Protein 7.0 Albumin 3.6 Globulin 3.4 Albumin/Globulin Ratio 1.06 Stl Occult Blood (IFOB) Negative Stool Occult Blood #2 No specimen received Stool Occult Blood #3 No specimen received Orders Category Date Time Status PLACE PATIENT OBSERVATION .TO MEDSURG (NON-MONITORED ADMISSION 01/19/17 17: 29 Ordered BED) ACTIVITY .Complete BR CARE 01/19/17 17:29 Ordered VITAL SIGNS Q8HR CARE 01/19/17 17:29 Ordered REGULAR DIET DIETARY 01/19/17 Dinner Ordered CBC W/ AUTO DIFF DAILY@0600 LAB 01/20/17 06:00 Ordered CBC W/ AUTO DIFF DAILY@0600 LAB 01/21/17 06:00 Ordered CBC W/ AUTO DIFF DAILY@0600 LAB 01/22/17 06:00 Ordered CBC W/ AUTO DIFF DAILY@0600 LAB 01/23/17 06:00 Ordered CBC W/ AUTO DIFF DAILY@0600 LAB 01/24/17 06:00 Ordered CBC W/ AUTO DIFF DAILY@0600 LAB 01/25/17 06:00 Ordered CBC W/ AUTO DIFF DAILY@0600 LAB 01/26/17 06:00 Ordered CBC W/ AUTO DIFF DAILY@0600 LAB 01/27/17 06:00 Ordered CBC W/ AUTO DIFF DAILY@0600 LAB 01/28/17 06:00 Ordered CBC W/ AUTO DIFF DAILY@0600 LAB 01/29/17 06:00 Ordered CBC W/ AUTO DIFF DAILY@0600 LAB 01/30/17 06:00 Ordered CBC W/ AUTO DIFF DAILY@0600 LAB 01/31/17 06:00 Ordered CBC W/ AUTO DIFF DAILY@0600 LAB 02/01/17 06:00 Ordered CBC W/ AUTO DIFF DAILY@0600 LAB 02/02/17 06:00 Ordered CBC W/ AUTO DIFF DAILY@0600 LAB 02/03/17 06:00 Ordered CBC W/ AUTO DIFF DAILY@0600 LAB 02/04/17 06:00 Ordered CBC W/ AUTO DIFF DAILY@0600 LAB 02/05/17 06:00 Ordered CBC W/ AUTO DIFF DAILY@0600 LAB 02/06/17 06:00 Ordered CBC W/ AUTO DIFF DAILY@0600 LAB 02/07/17 06:00 Ordered CBC W/ AUTO DIFF DAILY@0600 LAB 02/08/17 06:00 Ordered CBC W/ AUTO DIFF Stat LAB 01/19/17 16:40 Completed CBC W/ AUTO DIFF Timed LAB 01/20/17 06:00 Ordered COMPREHENSIVE METABOLIC PANEL DAILY@0600 LAB 01/20/17 06:00 Ordered COMPREHENSIVE METABOLIC PANEL DAILY@0600 LAB 01/21/17 06:00 Ordered COMPREHENSIVE METABOLIC PANEL DAILY@0600 LAB 01/22/17 06:00 Ordered COMPREHENSIVE METABOLIC PANEL DAILY@0600 LAB 01/23/17 06:00 Ordered COMPREHENSIVE METABOLIC PANEL DAILY@0600 LAB 01/24/17 06:00 Ordered COMPREHENSIVE METABOLIC PANEL DAILY@0600 LAB 01/25/17 06:00 Ordered COMPREHENSIVE METABOLIC PANEL DAILY@0600 LAB 01/26/17 06:00 Ordered COMPREHENSIVE METABOLIC PANEL DAILY@0600 LAB 01/27/17 06:00 Ordered COMPREHENSIVE METABOLIC PANEL DAILY@0600 LAB 01/28/17 06:00 Ordered COMPREHENSIVE METABOLIC PANEL DAILY@0600 LAB 01/29/17 06:00 Ordered COMPREHENSIVE METABOLIC PANEL DAILY@0600 LAB 01/30/17 06:00 Ordered COMPREHENSIVE METABOLIC PANEL DAILY@0600 LAB 01/31/17 06:00 Ordered COMPREHENSIVE METABOLIC PANEL DAILY@0600 LAB 02/01/17 06:00 Ordered COMPREHENSIVE METABOLIC PANEL DAILY@0600 LAB 02/02/17 06:00 Ordered COMPREHENSIVE METABOLIC PANEL DAILY@0600 LAB 02/03/17 06:00 Ordered COMPREHENSIVE METABOLIC PANEL DAILY@0600 LAB 02/04/17 06:00 Ordered COMPREHENSIVE METABOLIC PANEL DAILY@0600 LAB 02/05/17 06:00 Ordered COMPREHENSIVE METABOLIC PANEL DAILY@0600 LAB 02/06/17 06:00 Ordered COMPREHENSIVE METABOLIC PANEL DAILY@0600 LAB 02/07/17 06:00 Ordered COMPREHENSIVE METABOLIC PANEL DAILY@0600 LAB 02/08/17 06:00 Ordered COMPREHENSIVE METABOLIC PANEL Stat LAB 01/19/17 16:40 Completed OCCULT BLOOD, STOOL Stat LAB 01/19/17 16:40 Completed PARTIAL THROMBOPLASTIN TIME Stat LAB 01/19/17 16:40 Completed PT WITH INR Stat LAB 01/19/17 16:40 Completed PT WITH INR Timed LAB 01/20/17 06:00 Ordered Vital Signs: Temp Pulse Resp BP Pulse Ox 01/19/17 15:53 98.3 F 112 H 16 104/69 96 Departure - Departure Time of Disposition: 17:36 (REFUSED TO STAY RISK OF LEAVING AMA DISCUSSED STATED SHE HAS MANY CATS CAN NOT STAY) Disposition: AMA Discharge Problem: Laboratory test result abnormal Warfarin toxicity Qualifiers: Encounter type: sequela Instructions: Warfarin Toxicity (ED), Vitamin K in Foods (ED) Condition: Good Pt referred to PMD for follow-up: No Additional Instructions: Please call your Family Physician as soon as possible to schedule a follow-up appointment.MUST RETURN IN AM FOR PT, PTT, INR CHECK Allergies/Adverse Reactions: Allergies No Known Allergies Allergy (Verified 01/19/17 15:59) Home Medications: Ambulatory Orders Lisinopril/Hydrochlorothiazide [Lisinopril-Hctz 10-12.5 mg Tab] 10 mg PO DAILY 04/16/15 Warfarin Sodium [Coumadin] 5 mg PO EVERY OTHER DAY 04/16/15 Warfarin Sodium [Coumadin] 6 mg PO EVERY OTHER DAY 04/16/15 Cholecalciferol (Vitamin D3) [Vitamin D] 50,000 unit PO WE 12/05/16 Escitalopram Oxalate [Lexapro] 10 mg PO DAILY 01/19/17 Disposition Discussed With: Patient
[2017-01-19] MEDS ORDERED: MEPHYTON PO STA (17:38)
== END 2017-01-19 18:02 | disposition left against medical advice (07) ==
LOC: ED 15:53
DX: T45.515A Adverse effect of anticoagulants, initial encounter (principal); R79.1 Abnormal coagulation profile; D68.51 Activated protein C resistance; I10 Essential (primary) hypertension; E11.9 Type 2 diabetes mellitus without complications; Z79.01 Long term (current) use of anticoagulants; Z86.711 Personal history of pulmonary embolism; Z86.718 Personal history of other venous thrombosis and embolism; Z79.899 Other long term (current) drug therapy; F17.210 Nicotine dependence, cigarettes, uncomplicated; Z51.81 Encounter for therapeutic drug level monitoring; D69.8 Other specified hemorrhagic conditions; N18.3 Chronic kidney disease, stage 3 (moderate)
CPT/HCPCS: 36415; 80053; 81001; 82272; 82570; 84156; 85025; 85610; 85730; 87205; 99284

== ENCOUNTER 2017-01-20 10:28 | Outpatient (CLI) ==
[2017-01-19 15:59] VITALS: BMI 31.4
[2017-01-20 11:49] LABS: PROTHROMBIN TIME 31.5 SEC (9.3-11.0)
== END 2017-01-20 10:29 | disposition home or self-care (01) ==
LOC: LAB 10:28
PROVIDERS: ATTEND Internal Medicine
DX: T45.515A Adverse effect of anticoagulants, initial encounter (principal)
CPT/HCPCS: 36415; 85610; 85730

== ENCOUNTER 2017-01-26 13:44 | Outpatient (CLI) ==
[2017-01-26 14:17] LABS: BASOPHILS # (AUTO) 0.1 K/uL (0-0.2); BASOPHILS % (AUTO) 0.6 % (0.0-3.0); HEMATOCRIT 39.3 % (37.0-47.0); HEMOGLOBIN 13.7 g/dl (12.0-16.0); IMMATURE GRANULOCYTE % (AUTO) 0.6 % (0.0-5.0); LYMPHOCYTES # (AUTO) 2.7 K/uL (0.60-3.4); MEAN CORPUSCULAR HEMOGLOBIN 33.7 pg (27.0-31.0); MEAN CORPUSCULAR HGB CONC 34.9 (31.8-35.4); MEAN CORPUSCULAR VOLUME 96.6 fl (81.0-99.0); MONOCYTES # (AUTO) 0.7 K/uL (0.4-2.0); MONOCYTES % (AUTO) 7.8 (0-10); PLATELET COUNT 421 10^3/uL (140-440); RED BLOOD COUNT 4.07 10^6/ul (4.20-5.40); WHITE BLOOD COUNT 8.45 K/ul (4.6-10.2)
[2017-01-26 14:22] LABS: PROTHROMBIN TIME 20.1 SEC (9.3-11.0)
== END 2017-01-26 13:45 | disposition home or self-care (01) ==
LOC: LAB 13:44
PROVIDERS: ATTEND Physician Assistant
DX: Z51.81 Encounter for therapeutic drug level monitoring (principal); D69.8 Other specified hemorrhagic conditions
CPT/HCPCS: 36415; 85025; 85610

== ENCOUNTER 2017-01-29 15:04 | Outpatient (CLI) ==
[2017-01-29 15:30] LABS: PROTHROMBIN TIME 26.3 SEC (9.3-11.0)
== END 2017-01-29 15:05 | disposition home or self-care (01) ==
LOC: LAB 15:04
PROVIDERS: ATTEND Physician Assistant
DX: Z51.81 Encounter for therapeutic drug level monitoring (principal)
CPT/HCPCS: 36415; 85610

== ENCOUNTER 2017-02-08 11:21 | Outpatient (CLI) ==
[2017-02-08 11:31] LABS: BASOPHILS % (AUTO) 0.4 % (0.0-3.0); HEMATOCRIT 40.2 % (37.0-47.0); HEMOGLOBIN 13.8 g/dl (12.0-16.0); IMMATURE GRANULOCYTE % (AUTO) 0.7 % (0.0-5.0); LYMPHOCYTES # (AUTO) 2.2 K/uL (0.60-3.4); LYMPHOCYTES % (AUTO) 28.7 (10.0-50.0); MEAN CORPUSCULAR HEMOGLOBIN 32.8 pg (27.0-31.0); MEAN CORPUSCULAR HGB CONC 34.3 (31.8-35.4); MEAN CORPUSCULAR VOLUME 95.5 fl (81.0-99.0); MONOCYTES # (AUTO) 0.5 K/uL (0.4-2.0); MONOCYTES % (AUTO) 6.5 (0-10); NEUTROPHILS # (AUTO) 4.8 K/ul (2.0-6.9); NEUTROPHILS % (AUTO) 63.7; PLATELET COUNT 378 10^3/uL (140-440); RED BLOOD COUNT 4.21 10^6/ul (4.20-5.40); WHITE BLOOD COUNT 7.52 K/ul (4.6-10.2)
[2017-02-08 11:44] LABS: PROTHROMBIN TIME 37.8 SEC (9.3-11.0)
== END 2017-02-08 11:22 | disposition home or self-care (01) ==
LOC: LAB 11:21
PROVIDERS: ATTEND Physician Assistant
DX: Z51.81 Encounter for therapeutic drug level monitoring (principal); Z79.01 Long term (current) use of anticoagulants; D69.8 Other specified hemorrhagic conditions
CPT/HCPCS: 36415; 85025; 85610

== ENCOUNTER 2017-02-15 09:00 | Outpatient (CLI) ==
[2017-02-15 09:24] LABS: BASOPHILS # (AUTO) 0.1 K/uL (0-0.2); BASOPHILS % (AUTO) 0.6 % (0.0-3.0); HEMOGLOBIN 14.4 g/dl (12.0-16.0); IMMATURE GRANULOCYTE % (AUTO) 0.8 % (0.0-5.0); LYMPHOCYTES # (AUTO) 3.6 K/uL (0.60-3.4); LYMPHOCYTES % (AUTO) 45.9 (10.0-50.0); MEAN CORPUSCULAR HEMOGLOBIN 33.6 pg (27.0-31.0); MEAN CORPUSCULAR HGB CONC 34.3 (31.8-35.4); MEAN CORPUSCULAR VOLUME 98.1 fl (81.0-99.0); MONOCYTES # (AUTO) 0.7 K/uL (0.4-2.0); MONOCYTES % (AUTO) 8.5 (0-10); NEUTROPHILS # (AUTO) 3.4 K/ul (2.0-6.9); NEUTROPHILS % (AUTO) 44.2; PLATELET COUNT 390 10^3/uL (140-440); RED BLOOD COUNT 4.28 10^6/ul (4.20-5.40); WHITE BLOOD COUNT 7.75 K/ul (4.6-10.2)
[2017-02-15 10:07] LABS: PROTHROMBIN TIME 51.6 SEC (9.3-11.0)
--- NOTE | 2017-02-16 10:34 | MRI ---
EXAM: Thoracic spine MRI without contrast. HISTORY: Age related compression fractures. COMPARISON: Thoracic spine CT scan 01/05/2017. TECHNIQUE: Multiplanar, multisequence MR images were acquired. The thoracic spine without contrast . FINDINGS: There are 12 rib-bearing thoracic vertebra. There is minor thoracic levoscoliosis center ed at T8-9 and mild accentuation of the usual thoracic kyphosis in the lower thoracic spine centered at T9-10. There is generally mildly increased bright T1 and T2 fatty bone marrow signal suggestive of osteopenia. The ventral and lateral osteophytes are present in the mid and lower thoracic spine and there is disc desiccation from T1-2, 09/21/1969. Conus medullaris ends at T12-L1. There is a 30% right anterior wedge compression deformity of T9. There is anterior superior cortica l buckling and a fracture extends from the anterior superior cortex to the right posterior cortex wi th 2.2 mm retropulsion. There are also fractures that extend from the anterior superior cortex into the superior endplate and from the superior endplate into the posterior cortex. Bright STIR signal edema is present and this is consistent with an acute mild to moderate osteoporotic burst fracture. Degree of compression has mildly increased compared to the 01/05/[address] scan. At T8, there is minor buckling of the right anterior inferior cortex with a tiny fracture extending from the anterior inferior cortex into the anterior inferior endplate. Bright STIR signal edema is present and this is consistent with a minor acute anterior inferior endplate compression fracture. At T11, there is a 25% left anterior wedge compression deformity with irregular concavity of the sup erior endplate and 2.8 mm retropulsion. This minimally indents the thoracic cord although cerebrosp inal fluid is preserved around the cord. On the sagittal STIR sequence, there is possible faint janet ght STIR signal in the thoracic cord that extends from the disc level to the mid T11 level. This is not clearly demonstrated on the sagittal T2W sequence and may be present on the axial T2 images. T here are fractures that extend from the anterior superior cortex into the superior endplate and from the left superior endplate into the left lateral cortex and left posterior cortex with 2.8 mm retro pulsion. Mild bright STIR signal edema is present beneath the superior endplate and this is consist ent with a late subacute burst fracture. Degree of compression has mildly increased increased anteri malik and height of the vertebra now measures 10 mm anteriorly compared to 12.2 mm previously. At the L1, there is a moderate chronic 50-60 % right anterior wedge compression deformity. There is irregular concavity of the right superior endplate with dark T1 and T2 signal sclerosis along the m argins of the cavity which extends to the right posterior cortex where there may be focal discontinu ity in the bone and there is 1 mm posterior bowing. There is mild concavity of the inferior endplat e with in the 2 mm retropulsion of the inferior endplate and L1-2 intervertebral disc. These findin gs are compatible with a chronic burst fracture without change from the prior CT scan. T1-2: There is a dorsal spondylotic disc bulge with right lateral endplate osteophytes and bright S TIR signal edema along the endplates. This narrows the inferior left neural foramen. Mild bilatera l facet hypertrophy is present. There is mild to moderate right and moderately severe left neural f oraminal stenosis. Ligamentum flavum hypertrophy is present. These findings cause mild spinal sten osis. AP diameter of the thecal sac is 9 mm. T2-3: The intervertebral disc is normal. Right facet hypertrophy is present and there is moderate right foraminal stenosis. T3-4: There is 1.5 mm anterolisthesis of T3 on T4 which causes a pseudo disc bulge. Mild bilateral facet hypertrophy is present and there is mild left neural foraminal stenosis. T4-5: The intervertebral disc is normal. There is left facet hypertrophy and mild to moderate left foraminal stenosis. T5-6: The intervertebral disc is normal. There is mild left and mild to moderate right neural fora roni stenosis. T6-7: The intervertebral disc is normal. Left facet hypertrophy is present and there is mild right and mild to moderate left neural foraminal stenosis. T7-8: A benign intraosseous hemangioma is present at T7. There is a minor dorsal spondylotic disc bulge with a small central disc protrusion. Bilateral hypertrophic facet arthropathy is present and there is mild to moderate right and mild left foraminal stenosis. T8-9: The intervertebral disc is normal. There is minor cortical bowing of the upper T9 vertebra a nd 2.2 mm retropulsion of the lower T9 vertebra which mildly effaces the anterior subarachnoid space . Bilateral facet hypertrophy is present and there is mild spinal stenosis at the lower T9 level an d moderate right and mild-moderate left neural foraminal stenosis. AP diameter of the thecal sac is 8.7 mm. T9-10: The intervertebral disc is normal. Bilateral facet hypertrophy is present, greater on the r ight and there is mild left and moderate right foraminal stenosis. T10-11: There is 2.8 mm retropulsion of the T11 posterior superior endplate and T10-11 intervertebr al disc. Bilateral facet and ligamentum flavum hypertrophy is present. These findings cause mild s jb stenosis and moderate bilateral foraminal stenosis. AP diameter of the thecal sac is 9 mm. T11-12: There is a trace anterolisthesis of T11 on T12 and there is a mild disc bulge and bilateral facet hypertrophy. There is mild bilateral foraminal stenosis. T12-L1: There is a moderate chronic burst fracture of L1 with posterior bulging of the T12-L1 inter vertebral disc which mildly effaces the ventral thecal sac. Left facet hypertrophy is present. The re is mild spinal stenosis and mild left foraminal stenosis. IMPRESSION: 1. Mild accentuation usual lower thoracic kyphosis due to subacute to chronic fractures of several vertebra. 2. 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 Degree of compression has mildly increased compared t o the 01/05/2017 CT scan. 3. Minor acute anterior inferior endplate compression fracture T8. 4. 25% late subacute burst fracture T11. Degree of compression has mildly increased anteriorly com pared to previously. 5. Chronic 50-60% right anterior wedge compression deformity L1 without change. 6. Mild thoracic degenerative spondylosis which causes mild spinal stenosis at T1-2. 7. At T9, there is 2.2 mm retropulsion of the lower T9 vertebra which causes mild spinal stenosis. 8. At T11, there is 2.8 mm retropulsion of the T11 posterior superior endplate which minimally inde nts the thoracic cord although cerebrospinal fluid is preserved around the cord. There is possible faint bright STIR signal in the cord versus artifact. This causes mild spinal stenosis and T10-11.
--- NOTE | 2017-02-16 13:14 | MRI ---
EXAM: Lumbar spine MRI without contrast. HISTORY: Age related compression fractures. COMPARISON: Lumbar spine CT scan 01/05/2017 thoracic spine MRI 02/15/2017 and lumbar spine MRI 09/21. TECHNIQUE: Multiplanar, multisequence MR images were acquired of the lumbar spine without contrast. FINDINGS: Five lumbar-type vertebra are present. There is mild accentuation of the usual lumbar lo rdosis and there is 2 mm retrolisthesis of L1 on L2, 2 mm degenerative anterolisthesis of L2 on L3, 3.8 mm degenerative anterolisthesis of L3 on L4,1.5 mm anterolisthesis of L4 on L5 and 4 mm anteroli sthesis of L5 on S1. There is mildly increased T1 and T2 bone marrow signal compatible with osteope kamryn. There is disc space narrowing and disc desiccation at L1-2 and L3-4 and osteophytosis with mil d to moderate disc space narrowing, disc desiccation and vacuum phenomenon at L5-S1. Conus medullar is ends at L1 and has normal signal intensity. Canal diameter is developmentally narrow. There is osteoarthritis of the posterior spinous processes. The partially visualized liver, spleen and kidneys are unremarkable. There is mild atrophy of the p soas muscles bilaterally and atrophy with fatty infiltration of the posterior paraspinous muscles in the lower back and posterior to the sacrum. There is a 2.2 cm x 1.8 cm cystic lesion in the right a dnexal region that follow represents a dominant right ovarian follicle. At T11, there is a 25% left anterior wedge compression deformity with irregular concavity of the sup erior endplate. There is anterior superior cortical buckling and a fracture that extends from the a nterior superior cortex to the posterior superior cortex with posterior cortical buckling and 2.8 mm retropulsion. Fractures also extend from the anterior cortex into the superior endplate and from t he superior endplate into the posterior cortex. Mild bright STIR signal edema is present beneath th e superior endplate and this is compatible with a subacute burst fracture. At L1, there is a moderate chronic 50-60% right anterior wedge compression deformity with irregular concavity of the right superior endplate and dark T1-T2 signal sclerosis. There may be focal discon tinuity in the right posterior superior cortex which has 1 mm posterior bowing. This is compatible with a chronic burst fracture. At L2, there is mild irregularity along the left posterior superior endplate with a small chronic Sc hmorl's node and there is acute flattening of the left L2 pedicle and its junction with the posterio r vertebra. There is an irregular low T1-T2 signal microfracture that extends from the left posteri or vertebra to the junction with the left pedicle. Bright STIR signal edema is present in the left posterior L2 vertebra and left L2 pedicle. This is consistent with a minor 5% left posterior superi or endplate compression fracture extends into the proximal pedicle. L1-2: There is a dorsal spondylotic disc bulge that is asymmetric to the left and retropulsion of t he left L1 posterior inferior endplate. Mild bilateral facet and ligamentum flavum hypertrophy is p resent, and there is prominent dorsal epidural fat. This causes mild to moderate spinal stenosis an d mild right and severe left foraminal stenosis with encroachment on the left L1 nerve. AP diameter of the thecal sac is 7.1 mm. L2-3: There is mild disc bulge and bilateral hypertrophic facet arthropathy and ligamentum flavum h ypertrophy. There is mild spinal stenosis and mild left foraminal stenosis. AP diameter of the the ochoa sac is 8.6 mm. L3-4: There is anterolisthesis of L3 on L4 which produces a pseudo disc bulge. Mild to moderate sima ateral hypertrophic facet arthropathy and ligamentum flavum hypertrophy is present and there is mild to moderate spinal stenosis and mild bilateral foraminal stenosis. AP diameter of the thecal sac i s 7 mm. L4-5: There is a mild disc bulge and moderate bilateral hypertrophic facet arthropathy and ligament um flavum hypertrophy with small bilateral facet effusions. This causes mild to moderate spinal chava nosis. AP diameter of the thecal sac is 6.6 mm. L5-S1: There is anterolisthesis of L5 on S1 due to moderate right and mild to moderate left hypertr ophic facet arthropathy. There is a diffuse disc bulge and mild to moderate right neural foraminal stenosis. Small left and tiny right facet effusions are present. IMPRESSION: 1. 25% osteoporotic subacute burst fracture T11 and 50-60% chronic burst fracture L1. 2. Acute 5% left posterior superior endplate compression fracture L2 that extends into the left L2 pedicle. 3. 3.8 mm degenerative anterolisthesis L3 on L4 and 4 mm anterolisthesis L5 on S1. 4. No lumbar disc herniations. 5. Mild to moderate lumbar degenerative spondylosis which in this patient with a developmentally na rrow canal causes mild to moderate L1-2, L3-4 and L4-5 and mild L2-3 spinal stenosis. 6. Severe left foraminal stenosis L1-2.
== END 2017-02-15 09:01 | disposition home or self-care (01) ==
LOC: RAD 09:00
PROVIDERS: ATTEND Orthopaedic Surgery Orthopaedic Surgery of the Spine
DX: Z51.81 Encounter for therapeutic drug level monitoring (principal); Z79.01 Long term (current) use of anticoagulants; D69.8 Other specified hemorrhagic conditions; M80.08XA Age-related osteoporosis with current pathological fracture, vertebra(e), initial encounter for fracture
CPT/HCPCS: 36415; 85025; 85610

== ENCOUNTER 2017-02-19 10:42 | Outpatient (CLI) ==
[2017-02-19 11:05] LABS: BASOPHILS % (AUTO) 0.5 % (0.0-3.0); HEMATOCRIT 43.7 % (37.0-47.0); HEMOGLOBIN 14.8 g/dl (12.0-16.0); IMMATURE GRANULOCYTE % (AUTO) 0.6 % (0.0-5.0); LYMPHOCYTES # (AUTO) 2.9 K/uL (0.60-3.4); LYMPHOCYTES % (AUTO) 35.3 (10.0-50.0); MEAN CORPUSCULAR HEMOGLOBIN 33.2 pg (27.0-31.0); MEAN CORPUSCULAR HGB CONC 33.9 (31.8-35.4); MONOCYTES # (AUTO) 0.7 K/uL (0.4-2.0); MONOCYTES % (AUTO) 8.5 (0-10); NEUTROPHILS # (AUTO) 4.5 K/ul (2.0-6.9); NEUTROPHILS % (AUTO) 55.1; PLATELET COUNT 433 10^3/uL (140-440); RED BLOOD COUNT 4.46 10^6/ul (4.20-5.40); WHITE BLOOD COUNT 8.24 K/ul (4.6-10.2)
[2017-02-19 11:29] LABS: PROTHROMBIN TIME 16.6 SEC (9.3-11.0)
== END 2017-02-19 10:43 | disposition home or self-care (01) ==
LOC: LAB 10:42
PROVIDERS: ATTEND Physician Assistant
DX: Z51.81 Encounter for therapeutic drug level monitoring (principal); Z79.01 Long term (current) use of anticoagulants; D69.8 Other specified hemorrhagic conditions
CPT/HCPCS: 36415; 85025; 85610

== ENCOUNTER 2017-02-22 09:22 | Outpatient (CLI) ==
[2017-02-22 09:42] LABS: BASOPHILS # (AUTO) 0.1 K/uL (0-0.2); BASOPHILS % (AUTO) 0.5 % (0.0-3.0); HEMATOCRIT 44.7 % (37.0-47.0); IMMATURE GRANULOCYTE % (AUTO) 0.5 % (0.0-5.0); LYMPHOCYTES # (AUTO) 3.6 K/uL (0.60-3.4); LYMPHOCYTES % (AUTO) 33.7 (10.0-50.0); MEAN CORPUSCULAR HEMOGLOBIN 32.6 pg (27.0-31.0); MEAN CORPUSCULAR HGB CONC 33.6 (31.8-35.4); MEAN CORPUSCULAR VOLUME 97.2 fl (81.0-99.0); MONOCYTES # (AUTO) 0.9 K/uL (0.4-2.0); MONOCYTES % (AUTO) 8.5 (0-10); NEUTROPHILS # (AUTO) 6.1 K/ul (2.0-6.9); NEUTROPHILS % (AUTO) 56.8; PLATELET COUNT 421 10^3/uL (140-440); WHITE BLOOD COUNT 10.75 K/ul (4.6-10.2)
[2017-02-22 10:52] LABS: PROTHROMBIN TIME 109.2 SEC (9.3-11.0)
== END 2017-02-22 09:23 | disposition home or self-care (01) ==
LOC: LAB 09:22
PROVIDERS: ATTEND Physician Assistant
DX: Z51.81 Encounter for therapeutic drug level monitoring (principal); Z79.01 Long term (current) use of anticoagulants; D69.8 Other specified hemorrhagic conditions
CPT/HCPCS: 36415; 85025; 85610

== ENCOUNTER 2017-02-22 13:29 | Emergency (ER) ==
[2017-02-22 13:33] VITALS: BP 130/82; TEMP 96.7; BMI 31.2
[2017-02-22] MEDS ORDERED: MEPHYTON PO STA (14:18)
--- NOTE | 2017-02-22 14:21 | ED.PDOC ---
General ED Provider: Dr. FARAZ GASTELUM Chief Complaint: Abnormal Labs Stated Complaint: high INR W/O BLEEDING Time Seen by Physician: 13:29 (NO ACTIVE BLEED NO PAIN) Mode of Arrival: Walk-In Information Source: Patient Exam Limitations: No limitations Primary Care Provider: KOJO MCINTYRE Nursing and Triage Documentation Reviewed and Agree: Yes Miscellaneous Complaint Exam - Complex/Multi-System Complaint/Exam Onset/Duration: ABNORMAL INR OUT PT Symptoms Are: Still present Associated Signs and Symptoms: Denies: Decreased responsiveness, Confusion, Agitation, Dizziness, Weakness, Syncope, Headache, Short of air, Cough, Wheezing , Hemoptysis, Chest pain, Palpitations, Edema, Nausea, Vomiting, Diarrhea, Abdominal pain, Back pain, Dysuria, Hematemesis, Melena, Decreased oral intake, Fever, Diaphoresis, Immunocompromised, Anticoagulation Therapy, Recent medication changes, Indwelling certified medical transcriptionist, Prior MRSA, Prior VRE, Recent trauma, Remote trauma Recent Echo/LV Function: No Respiratory Distress: None JVD Present: No Tachypnea Present: No Stridor Present: No Abdominal Findings: Present: Normal findings Glascow Coma Scale (see protocol): 15 Meningeal Signs Positive: No Focal Weakness: Present: None Focal Sensory Loss: Present: None Gait: Normal Babinski Sign: Negative Right, Negative Left Skin Findings: Present: Normal findings Review of Systems - Review Of Systems Constitutional: Reports: No symptoms Eyes: Reports: No symptoms Ears, Nose, Mouth, Throat: Reports: No symptoms Respiratory: Reports: No symptoms Cardiac: Reports: No symptoms GI: Reports: No symptoms : Reports: No symptoms Musculoskeletal: Reports: No symptoms Skin: Reports: No symptoms Neurological: Reports: No symptoms Endocrine: Reports: No symptoms Hematologic/Lymphatic: Reports: No symptoms All Other Systems: Reviewed and Negative Past Medical History - Past Medical History Previously Healthy: No Endocrine: Reports: DM 2, Other (factor 5 leiden dx 2012) Cardiovascular: Reports: Hypertension, DVT (each leg) Respiratory: Reports: None, PE (each lung) Hematological: Reports: Other ( factor v leiden ) Gastrointestinal: Reports: None Genitourinary: Reports: None Neuro/Psych: Reports: None, Depression Musculoskeletal: Reports: None Cancer: Reports: None Last Menstrual Period: 1987 Other Pertinent Past Medical History: htn depr factor v leiden right ankle surg - Surgical History General Surgical History: Reports: Orthopedic (right ankle surg ), Unknown (on warfarin) - Family History Family History: Reports: Unknown - Social History Smoking Status: Current every day smoker, Heavy tobacco smoker Hx Substance Use: No Alcohol Screening: Occasionally - Immunizations Tetanus Shot up to Date: No Physical Exam - Physical Exam Appearance: Well-appearing, No pain distress, Well-nourished Eyes: FABBY, EOMI, Conjunctiva clear ENT: Ears normal, Nose normal, Oropharynx normal Respiratory: Airway patent, Breath sounds clear, Breath sounds equal, Respirations nonlabored Cardiovascular: RRR, Pulses normal, No rub, No murmur GI/: Soft, Nontender, No masses, Bowel sounds normal, No Organomegaly Musculoskeletal: Normal strength, ROM intact, No edema, No calf tenderness Skin: Warm, Dry, Normal color Neurological: Sensation intact, Motor intact, Reflexes intact, Cranial nerves intact, Alert, Oriented Psychiatric: Affect appropriate, Mood appropriate Critical Care Note - Critical Care Note Total Time (mins): 0 Course - Course Orders, Labs, Meds: Orders Category Date Time Status CBC W/ AUTO DIFF Stat LAB 02/22/17 14:05 Ordered PT WITH INR Stat LAB 02/22/17 14:05 Ordered Phytonadione [Mephyton] MEDS 02/22/17 14:18 Stat 5 mg PO ONCE STA Medications Generic Name Dose Route Start Last Admin Trade Name Reynoldq PRN Reason Stop Dose Admin Phytonadione 5 mg 02/22/17 14:18 Mephyton PO 02/22/17 14:19 ONCE STA Vital Signs: Temp Pulse Resp BP Pulse Ox 02/22/17 13:29 96.7 F L 76 20 130/82 99 Departure - Departure Time of Disposition: 15:00 Disposition: HOME SELF-CARE Discharge Problem: Laboratory test result abnormal Warfarin toxicity Qualifiers: Encounter type: initial encounter Instructions: Warfarin Toxicity (ED), Vitamin K in Foods (ED) Condition: Good Pt referred to PMD for follow-up: No Additional Instructions: Please call your Family Physician as soon as possible to schedule a follow-up appointment. Allergies/Adverse Reactions: Allergies No Known Allergies Allergy (Verified 01/19/17 15:59) Home Medications: Ambulatory Orders Lisinopril/Hydrochlorothiazide [Lisinopril-Hctz 10-12.5 mg Tab] 10 mg PO DAILY 04/16/15 Warfarin Sodium [Coumadin] 5 mg PO EVERY OTHER DAY 04/16/15 Warfarin Sodium [Coumadin] 6 mg PO EVERY OTHER DAY 04/16/15 Cholecalciferol (Vitamin D3) [Vitamin D] 50,000 unit PO WE 12/05/16 Escitalopram Oxalate [Lexapro] 10 mg PO DAILY 01/19/17 Disposition Discussed With: Patient
[2017-02-22 14:48] LABS: BASOPHILS # (AUTO) 0.1 K/uL (0-0.2); BASOPHILS % (AUTO) 0.5 % (0.0-3.0); HEMATOCRIT 45.1 % (37.0-47.0); HEMOGLOBIN 15.4 g/dl (12.0-16.0); IMMATURE GRANULOCYTE % (AUTO) 0.5 % (0.0-5.0); LYMPHOCYTES # (AUTO) 3.2 K/uL (0.60-3.4); LYMPHOCYTES % (AUTO) 27.8 (10.0-50.0); MEAN CORPUSCULAR HGB CONC 34.1 (31.8-35.4); MEAN CORPUSCULAR VOLUME 96.6 fl (81.0-99.0); MONOCYTES # (AUTO) 0.7 K/uL (0.4-2.0); MONOCYTES % (AUTO) 5.9 (0-10); NEUTROPHILS # (AUTO) 7.4 K/ul (2.0-6.9); NEUTROPHILS % (AUTO) 65.3; PLATELET COUNT 433 10^3/uL (140-440); RED BLOOD COUNT 4.67 10^6/ul (4.20-5.40)
[2017-02-22 16:22] LABS: PROTHROMBIN TIME 99.2 SEC (9.3-11.0)
== END 2017-02-22 15:34 | disposition home or self-care (01) ==
LOC: ED 13:29
DX: R79.1 Abnormal coagulation profile (principal); T45.515A Adverse effect of anticoagulants, initial encounter; Z79.01 Long term (current) use of anticoagulants; D68.51 Activated protein C resistance; I10 Essential (primary) hypertension; E11.9 Type 2 diabetes mellitus without complications; Z86.711 Personal history of pulmonary embolism; Z86.718 Personal history of other venous thrombosis and embolism; Z79.899 Other long term (current) drug therapy; F17.210 Nicotine dependence, cigarettes, uncomplicated; Z51.81 Encounter for therapeutic drug level monitoring; D69.8 Other specified hemorrhagic conditions
CPT/HCPCS: 36415; 85025; 85610; 99283

== ENCOUNTER 2017-02-23 10:08 | Outpatient (CLI) ==
[2017-02-22 13:33] VITALS: BMI 31.2
[2017-02-23 10:41] LABS: BASOPHILS # (AUTO) 0.1 K/uL (0-0.2); BASOPHILS % (AUTO) 0.7 % (0.0-3.0); HEMATOCRIT 45.3 % (37.0-47.0); HEMOGLOBIN 15.4 g/dl (12.0-16.0); IMMATURE GRANULOCYTE % (AUTO) 0.5 % (0.0-5.0); LYMPHOCYTES # (AUTO) 2.6 K/uL (0.60-3.4); LYMPHOCYTES % (AUTO) 30.1 (10.0-50.0); MEAN CORPUSCULAR HEMOGLOBIN 32.6 pg (27.0-31.0); MONOCYTES # (AUTO) 0.6 K/uL (0.4-2.0); MONOCYTES % (AUTO) 7.1 (0-10); NEUTROPHILS # (AUTO) 5.4 K/ul (2.0-6.9); NEUTROPHILS % (AUTO) 61.6; PLATELET COUNT 428 10^3/uL (140-440); RED BLOOD COUNT 4.72 10^6/ul (4.20-5.40)
[2017-02-23 10:50] LABS: PROTHROMBIN TIME 40.7 SEC (9.3-11.0)
== END 2017-02-23 10:09 | disposition home or self-care (01) ==
LOC: LAB 10:08
PROVIDERS: ATTEND Physician Assistant
DX: Z51.81 Encounter for therapeutic drug level monitoring (principal); Z79.01 Long term (current) use of anticoagulants; D69.8 Other specified hemorrhagic conditions
CPT/HCPCS: 36415; 85025; 85610

== ENCOUNTER 2017-02-26 09:39 | Outpatient (CLI) ==
[2017-02-26 10:13] LABS: PROTHROMBIN TIME 16.2 SEC (9.3-11.0)
== END 2017-02-26 09:40 | disposition home or self-care (01) ==
LOC: LAB 09:39
PROVIDERS: ATTEND Physician Assistant
DX: Z51.81 Encounter for therapeutic drug level monitoring (principal)
CPT/HCPCS: 36415; 85610

== ENCOUNTER 2017-02-28 09:54 | Outpatient (CLI) ==
[2017-02-28 10:33] LABS: PROTHROMBIN TIME 13.9 SEC (9.3-11.0)
== END 2017-02-28 09:55 | disposition home or self-care (01) ==
LOC: LAB 09:54
PROVIDERS: ATTEND Physician Assistant
DX: Z51.81 Encounter for therapeutic drug level monitoring (principal); Z79.01 Long term (current) use of anticoagulants; R14.0 Abdominal distension (gaseous); R97.1 Elevated cancer antigen 125 [CA 125]
CPT/HCPCS: 36415; 85610

== ENCOUNTER 2017-03-02 10:04 | Outpatient (CLI) ==
[2017-03-02 11:04] LABS: PROTHROMBIN TIME 13.6 SEC (9.3-11.0)
== END 2017-03-02 10:05 | disposition home or self-care (01) ==
LOC: LAB 10:04
PROVIDERS: ATTEND Physician Assistant
DX: Z51.81 Encounter for therapeutic drug level monitoring (principal); Z79.01 Long term (current) use of anticoagulants
CPT/HCPCS: 36415; 85610

== ENCOUNTER 2017-03-06 10:00 | Outpatient (CLI) ==
[2017-03-06 10:35] LABS: PROTHROMBIN TIME 21.8 SEC (9.3-11.0)
== END 2017-03-06 10:01 | disposition home or self-care (01) ==
LOC: LAB 10:00
PROVIDERS: ATTEND Physician Assistant
DX: Z51.81 Encounter for therapeutic drug level monitoring (principal); Z79.01 Long term (current) use of anticoagulants
CPT/HCPCS: 36415; 85610

== ENCOUNTER 2017-03-12 10:35 | Outpatient (CLI) ==
[2017-03-12 10:54] LABS: BASOPHILS # (AUTO) 0.1 K/uL (0-0.2); BASOPHILS % (AUTO) 0.6 % (0.0-3.0); HEMATOCRIT 43.2 % (37.0-47.0); HEMOGLOBIN 15.3 g/dl (12.0-16.0); IMMATURE GRANULOCYTE % (AUTO) 0.6 % (0.0-5.0); LYMPHOCYTES # (AUTO) 2.7 K/uL (0.60-3.4); LYMPHOCYTES % (AUTO) 32.6 (10.0-50.0); MEAN CORPUSCULAR HEMOGLOBIN 33.6 pg (27.0-31.0); MEAN CORPUSCULAR HGB CONC 35.4 (31.8-35.4); MEAN CORPUSCULAR VOLUME 94.7 fl (81.0-99.0); MONOCYTES # (AUTO) 0.7 K/uL (0.4-2.0); MONOCYTES % (AUTO) 8.9 (0-10); NEUTROPHILS # (AUTO) 4.7 K/ul (2.0-6.9); NEUTROPHILS % (AUTO) 57.3; PLATELET COUNT 366 10^3/uL (140-440); RED BLOOD COUNT 4.56 10^6/ul (4.20-5.40); WHITE BLOOD COUNT 8.23 K/ul (4.6-10.2)
[2017-03-12 11:06] LABS: PROTHROMBIN TIME 28.2 SEC (9.3-11.0)
== END 2017-03-12 10:36 | disposition home or self-care (01) ==
LOC: LAB 10:35
PROVIDERS: ATTEND Physician Assistant
DX: Z51.81 Encounter for therapeutic drug level monitoring (principal); R97.1 Elevated cancer antigen 125 [CA 125]; R14.0 Abdominal distension (gaseous)
CPT/HCPCS: 36415; 85025; 85610; 86304

== ENCOUNTER 2017-03-19 10:15 | Outpatient (CLI) ==
[2017-03-19 11:10] LABS: PROTHROMBIN TIME 56.7 SEC (9.3-11.0)
== END 2017-03-19 10:16 | disposition home or self-care (01) ==
LOC: LAB 10:15
PROVIDERS: ATTEND Physician Assistant
DX: Z51.81 Encounter for therapeutic drug level monitoring (principal)
CPT/HCPCS: 36415; 85610

== ENCOUNTER 2017-03-27 11:19 | Outpatient (CLI) ==
[2017-03-27 11:46] LABS: BASOPHILS # (AUTO) 0.1 K/uL (0-0.2); BASOPHILS % (AUTO) 0.6 % (0.0-3.0); HEMATOCRIT 44.3 % (37.0-47.0); HEMOGLOBIN 15.6 g/dl (12.0-16.0); IMMATURE GRANULOCYTE % (AUTO) 0.8 % (0.0-5.0); LYMPHOCYTES # (AUTO) 2.8 K/uL (0.60-3.4); LYMPHOCYTES % (AUTO) 31.4 (10.0-50.0); MEAN CORPUSCULAR HEMOGLOBIN 32.8 pg (27.0-31.0); MEAN CORPUSCULAR HGB CONC 35.2 (31.8-35.4); MEAN CORPUSCULAR VOLUME 93.1 fl (81.0-99.0); MONOCYTES # (AUTO) 0.7 K/uL (0.4-2.0); MONOCYTES % (AUTO) 7.7 (0-10); NEUTROPHILS # (AUTO) 5.3 K/ul (2.0-6.9); NEUTROPHILS % (AUTO) 59.5; PLATELET COUNT 385 10^3/uL (140-440); RED BLOOD COUNT 4.76 10^6/ul (4.20-5.40); WHITE BLOOD COUNT 8.96 K/ul (4.6-10.2)
== END 2017-03-27 11:20 | disposition home or self-care (01) ==
LOC: LAB 11:19
PROVIDERS: ATTEND Physician Assistant
DX: Z51.81 Encounter for therapeutic drug level monitoring (principal); Z79.01 Long term (current) use of anticoagulants; R06.00 Dyspnea, unspecified
CPT/HCPCS: 36415; 85025; 93005; 93010

== ENCOUNTER 2017-03-28 11:00 | Outpatient (CLI) ==
[2017-03-28 11:46] LABS: PROTHROMBIN TIME 21.4 SEC (9.3-11.0)
== END 2017-03-28 11:01 | disposition home or self-care (01) ==
LOC: LAB 11:00
PROVIDERS: ATTEND Physician Assistant
DX: Z51.81 Encounter for therapeutic drug level monitoring (principal); Z79.01 Long term (current) use of anticoagulants
CPT/HCPCS: 36415; 85610

== ENCOUNTER 2017-04-02 12:18 | Outpatient (CLI) ==
[2017-04-02 12:34] LABS: BASOPHILS % (AUTO) 0.3 % (0.0-3.0); HEMATOCRIT 45.8 % (37.0-47.0); IMMATURE GRANULOCYTE % (AUTO) 0.9 % (0.0-5.0); LYMPHOCYTES # (AUTO) 3.8 K/uL (0.60-3.4); LYMPHOCYTES % (AUTO) 32.4 (10.0-50.0); MEAN CORPUSCULAR HEMOGLOBIN 32.9 pg (27.0-31.0); MEAN CORPUSCULAR HGB CONC 34.9 (31.8-35.4); MONOCYTES # (AUTO) 0.8 K/uL (0.4-2.0); MONOCYTES % (AUTO) 6.6 (0-10); NEUTROPHILS # (AUTO) 6.9 K/ul (2.0-6.9); NEUTROPHILS % (AUTO) 59.8; PLATELET COUNT 430 10^3/uL (140-440); RED BLOOD COUNT 4.87 10^6/ul (4.20-5.40); WHITE BLOOD COUNT 11.62 K/ul (4.6-10.2)
== END 2017-04-02 12:19 | disposition home or self-care (01) ==
LOC: LAB 12:18
PROVIDERS: ATTEND Physician Assistant
DX: Z51.81 Encounter for therapeutic drug level monitoring (principal); Z79.01 Long term (current) use of anticoagulants
CPT/HCPCS: 36415; 85025; 85610

== ENCOUNTER 2017-05-02 12:50 | Outpatient (CLI) ==
[2017-05-02 13:29] LABS: BASOPHILS # (AUTO) 0.1 K/uL (0-0.2); BASOPHILS % (AUTO) 0.5 % (0.0-3.0); HEMATOCRIT 46.5 % (37.0-47.0); HEMOGLOBIN 16.1 g/dl (12.0-16.0); IMMATURE GRANULOCYTE % (AUTO) 0.6 % (0.0-5.0); LYMPHOCYTES # (AUTO) 3.5 K/uL (0.60-3.4); LYMPHOCYTES % (AUTO) 29.8 (10.0-50.0); MEAN CORPUSCULAR HEMOGLOBIN 31.9 pg (27.0-31.0); MEAN CORPUSCULAR HGB CONC 34.6 (31.8-35.4); MEAN CORPUSCULAR VOLUME 92.3 fl (81.0-99.0); MONOCYTES # (AUTO) 0.7 K/uL (0.4-2.0); MONOCYTES % (AUTO) 6.1 (0-10); NEUTROPHILS # (AUTO) 7.4 K/ul (2.0-6.9); PLATELET COUNT 456 10^3/uL (140-440); RED BLOOD COUNT 5.04 10^6/ul (4.20-5.40); WHITE BLOOD COUNT 11.73 K/ul (4.6-10.2)
[2017-05-02 13:58] LABS: PROTHROMBIN TIME 15.8 SEC (9.3-11.0)
[2017-05-02 13:59] LABS: ALBUMIN 3.3 g/dL (3.4-5.0); ALBUMIN/GLOBULIN RATIO 0.85; ANION GAP 16.3; BILIRUBIN,TOTAL 0.49 mg/dL (0.00-1.20); BUN/CREATININE RATIO 25.88; CALCIUM 9.6 mg/dL (8.2-10.2); CREATININE 0.85 mg/dL (0.60-1.30); POTASSIUM 4.3 mmol/L (3.5-5.10); TOTAL PROTEIN 7.2 g/dL (5.8-8.1)
== END 2017-05-02 12:51 | disposition home or self-care (01) ==
LOC: LAB 12:50
PROVIDERS: ATTEND Physician Assistant
DX: Z51.81 Encounter for therapeutic drug level monitoring (principal); Z79.01 Long term (current) use of anticoagulants; R97.1 Elevated cancer antigen 125 [CA 125]; D68.51 Activated protein C resistance
CPT/HCPCS: 36415; 80053; 81241; 85025; 85610; 86304

== ENCOUNTER 2017-05-10 10:39 | Outpatient (CLI) ==
[2017-05-10 11:40] LABS: PROTHROMBIN TIME 20.1 SEC (9.3-11.0)
== END 2017-05-10 10:40 | disposition home or self-care (01) ==
LOC: LAB 10:39
PROVIDERS: ATTEND Physician Assistant
DX: Z51.81 Encounter for therapeutic drug level monitoring (principal); Z79.01 Long term (current) use of anticoagulants
CPT/HCPCS: 36415; 85610

== ENCOUNTER 2017-05-10 14:59 | Outpatient (RCR) ==
--- NOTE | 2017-05-14 13:32 | RS.OPPTEV2 ---
Date of Note: 05/10/17 Visit #: 1 Date of Evaluation: 05/10/17 Payer Source: MEDICARE Treatment Diagnosis: back pain History of Condition/Mechanism of Injury:: Pt reports back pain since the first of the year. Reports her symptoms started with abdomen distention in November of this year. She then started having pain into the mid back and radiating around to the sides of her trunk and abdominal muscles. She has scheduled endoscopy and colonoscopy. Prior Level of Function.....Patient was independent with: ADL's, Self Care, Ambulation/Mobility, Community Integration/Access Functional Limitations: Sleep, Self Care, ADL's, Reaching, Sitting, Standing, Bending, Squatting, Ambulation, Community Access/Integration Current Subjective/complaints:: Patient reports mid back pain. States pain increases as the day progresses. States by the afternoon, she can hardly stand to wear a bra, or anything else that puts pressure on her body. States walking and standing increase her pain. States she has numbness on the left posterior thigh to light touch. Denies any recent radiating symptoms into the LE's States she is able to walk from room to room in her home, out to her car, and to clean out the litter box. She has a cane and a standard walker. She reports no recent falls. States she took a [employer] [place] 10 ~ an hour ago and is still in pain. Reports that she asked for Physical Therapy to gain strength to her spine. Medical History Medical History: Hypertension Medical History Comments:: Osteoporosis Surgical History Comments:: Right ankle fusion 01/02, continues to wear CAM boot Smoking Status: Current every day smoker Hx Home Medications: Lexapro,warfarin, Hydrocodone Patient's Goals: Her goal is to get relief of back pain and increase her level of function. Pain Assessment - Pain Description Pain Location: mid back Current Pain Intensity: not quantified Worst Pain Intensity: not quantified Functional Outcome Measure Oswestry LBP: 76 - G Codes & Severity Modifier G Codes & Modifier: Mobility current CL. Mobility goal CJ Source of G Code score: Oswestry LBP Observation - Observation Inspection: Patient presents to department via WC. Posture: Forward Head, Rounded Shoulders, Decreased Lumbar Lordosis Gait - Gait Pattern Gait Comments: Patient ambulates short distances in the department from and to wheelchair, with forward flexed posture. Demonstrates decreased hip and knee flexion bilaterally. - ROM Comments: Lumbar AROM is ~50% of normal. Thoracic rotation ~ 50% of normal in sitting. Bilateral UE and LE AROM is WFL's. - Strength Comments: Trunk strength generally 4/5. LE strength 4-/5 hips, 4/5 knees, 4 to 4 +/5 of ankles bilaterally. Bilateral UE strength is 4+/5 throughout. - Special Tests Comments: Unable to perform valid Special Tests due to reports of pain with most movement of the LE's and spine. Palpation Comments:: Patient reports tenderness to the touch along thoracic and upper lumbar paraspinals. Demonstrates a small concaved area at the right lower thoracic paraspinals. Sensation - Sensation Comments: Patient reports numbness along the posterior aspect of the left thigh to light touch. Intact to deep pressure. Balance - Sitting Balance Static Sitting Balance: Good Dynamic Sitting Balance: Good - Standing Balance Static Standing Balance: Fair Dynamic Standing Balance: Fair Additional Comments: Additional Comments: SLR bilaterally to 50 degrees. Interventions - Exercise/Activities/Manual Therapy Exercises/Activities: none Manual Therapy: NA - Charges Total Direct Minutes: 60 mins Total Treatment Time: 60 mins Procedures billed for this date of service:: [employer] complexity Assessment Assessment: Patient presents to therapy with a diagnosis of low back pain. Patient states her pain is mostly middle (thoracic) of the spine. She reports difficulty walking and standing and increased pain as the day progresses. She exhibits difficulty ambulating short distances. Reports decreased tolerance for ADL's that require standing and walking. She may benefit from stretching to the HS and strenghthening exercises to the spine and LE's to improve her functional ability and tolerance for weight bearing activities. Patient Education: Education of diagnosis, Body/Joint mechanics, Education of Plan of Care Rehab Potential: Good Short Term Goals Goal #1: Pt independent and compliant with initial HEP. Goal to be met by: 05/28/17 Goal #2: Trunk strength improved to 4+/5 Goal to be met by: 05/28/17 Goal #3: Bilateral hip flexion 4/5. Goal to be met by: 05/28/17 Patient Admitting Clerk Goals Goal #1: Pt knows HEP and to continue ex's to maintain functional level at D/c. Goal to be met by: 06/23/17 Goal #2: Score on Oswestry LBP scale improved to less than 39% impairment. Goal to be met by: 06/23/17 Goal #3: Pt able to stand to perform ADL's with minimal back pain. Goal to be met by: 06/23/17 Goal #4: Pt to amb. community distances with minimal difficulty or back pain. Goal to be met by: 06/23/17 Plan - Treatment to be Provided Procedures: Therapeutic Exercises, Therapeutic Activity, Manual Therapy, Patient Education Modalities: Electrical Stimulation, Ultrasound/Phonophoresis, Hot Packs - Treatment Plan Frequency: 2-3 X week Duration: 4 weeks ORDER # VISITS AND/OR THROUGH DATE: 06/23/17 - Treatment Code (1) Thoracic spine pain Code(s): M54.6 - PAIN IN THORACIC SPINE Comments: M54.6 (2) Low back pain Code(s): M54.5 - LOW BACK PAIN Qualifiers: Chronicity: chronic Back pain laterality: unspecified Sciatica presence: unspecified whether sciatica present Qualified Code(s): M54.5 - Low back pain ; G89.29 - Other chronic pain (3) Gait abnormality Code(s): R26.9 - UNSPECIFIED ABNORMALITIES OF GAIT AND MOBILITY Comments: R26.9
--- NOTE | 2017-05-17 10:50 | RS.CXNS ---
Date of scheduled appointment: 05/17/17 Type: Cancel Reason for Cancel/NS: Patient cancels related to fall
== END 2017-05-19 ==
PROVIDERS: ATTEND Physician Assistant
DX: M54.5 Low back pain (principal)

== ENCOUNTER 2017-05-17 14:04 | Outpatient (CLI) ==
[2017-05-17 15:02] LABS: PROTHROMBIN TIME 39.5 SEC (9.3-11.0)
== END 2017-05-17 14:05 | disposition home or self-care (01) ==
LOC: LAB 14:04
PROVIDERS: ATTEND Physician Assistant
DX: Z51.81 Encounter for therapeutic drug level monitoring (principal)
CPT/HCPCS: 36415; 85610

== ENCOUNTER 2017-05-21 11:19 | Outpatient (CLI) ==
--- NOTE | 2017-05-21 11:55 | DI ---
EXAM: RIGHT KNEE. HISTORY: Knee pain. FINDINGS: Right knee four view. Compared to 04/16/2015. Trabecular markings are accentuated consist ent with a degree of diffuse demineralization. There is mild loss of articular cartilage width in th e anterior compartment consistent with osteoarthritis. Trace joint effusion is noted. Medial and la teral compartments are within normal limits. There may be mild chondrocalcinosis. No acute fracture is identified. IMPRESSION: Early osteoarthritis. Generalized demineralization. Trace joint effusion.
[2017-05-21 12:00] LABS: PROTHROMBIN TIME 22.2 SEC (9.3-11.0)
== END 2017-05-21 11:20 | disposition home or self-care (01) ==
LOC: LAB 11:19
PROVIDERS: ATTEND Physician Assistant
DX: Z51.81 Encounter for therapeutic drug level monitoring (principal); Z79.01 Long term (current) use of anticoagulants; M25.561 Pain in right knee
CPT/HCPCS: 36415; 85610

== ENCOUNTER 2017-05-29 13:20 | Outpatient (CLI) ==
[2017-05-29 13:44] LABS: HEMATOCRIT 42.9 % (37.0-47.0); HEMOGLOBIN 14.8 g/dl (12.0-16.0); MEAN CORPUSCULAR HEMOGLOBIN 31.5 pg (27.0-31.0); MEAN CORPUSCULAR HGB CONC 34.5 (31.8-35.4); MEAN CORPUSCULAR VOLUME 91.3 fl (81.0-99.0); RED BLOOD COUNT 4.7 10^6/ul (4.20-5.40); WHITE BLOOD COUNT 8.44 K/ul (4.6-10.2)
[2017-05-29 13:55] LABS: PROTHROMBIN TIME 17.3 SEC (9.3-11.0)
== END 2017-05-29 13:21 | disposition home or self-care (01) ==
LOC: LAB 13:20
PROVIDERS: ATTEND Physician Assistant
DX: Z51.81 Encounter for therapeutic drug level monitoring (principal)
CPT/HCPCS: 36415; 85027; 85610

== ENCOUNTER 2017-06-05 14:08 | Outpatient (CLI) ==
[2017-06-05 14:29] LABS: HEMATOCRIT 45.2 % (37.0-47.0); HEMOGLOBIN 15.9 g/dl (12.0-16.0); MEAN CORPUSCULAR HEMOGLOBIN 31.9 pg (27.0-31.0); MEAN CORPUSCULAR HGB CONC 35.2 (31.8-35.4); MEAN CORPUSCULAR VOLUME 90.6 fl (81.0-99.0); RED BLOOD COUNT 4.99 10^6/ul (4.20-5.40); WHITE BLOOD COUNT 10.01 K/ul (4.6-10.2)
[2017-06-05 14:53] LABS: PROTHROMBIN TIME 28.1 SEC (9.3-11.0)
== END 2017-06-05 14:09 | disposition home or self-care (01) ==
LOC: LAB 14:08
PROVIDERS: ATTEND Physician Assistant
DX: Z51.81 Encounter for therapeutic drug level monitoring (principal)
CPT/HCPCS: 36415; 85027; 85610

== ENCOUNTER 2017-06-12 14:22 | Outpatient (CLI) ==
[2017-06-12 14:43] LABS: HEMATOCRIT 45.1 % (37.0-47.0); MEAN CORPUSCULAR HEMOGLOBIN 31.9 pg (27.0-31.0); MEAN CORPUSCULAR HGB CONC 35.5 (31.8-35.4); MEAN CORPUSCULAR VOLUME 89.8 fl (81.0-99.0); RED BLOOD COUNT 5.02 10^6/ul (4.20-5.40); WHITE BLOOD COUNT 11.09 K/ul (4.6-10.2)
[2017-06-12 14:57] LABS: PROTHROMBIN TIME 29.9 SEC (9.3-11.0)
== END 2017-06-12 14:23 | disposition home or self-care (01) ==
LOC: LAB 14:22
PROVIDERS: ATTEND Physician Assistant
DX: Z51.81 Encounter for therapeutic drug level monitoring (principal); Z79.01 Long term (current) use of anticoagulants
CPT/HCPCS: 36415; 85025; 85027; 85610

== ENCOUNTER 2017-06-19 13:27 | Outpatient (CLI) ==
[2017-06-19 13:48] LABS: HEMATOCRIT 42.7 % (37.0-47.0); MEAN CORPUSCULAR HEMOGLOBIN 31.9 pg (27.0-31.0); MEAN CORPUSCULAR HGB CONC 35.1 (31.8-35.4); MEAN CORPUSCULAR VOLUME 90.9 fl (81.0-99.0); RED BLOOD COUNT 4.7 10^6/ul (4.20-5.40); WHITE BLOOD COUNT 10.45 K/ul (4.6-10.2)
[2017-06-19 14:05] LABS: PROTHROMBIN TIME 15.7 SEC (9.3-11.0)
== END 2017-06-19 13:28 | disposition home or self-care (01) ==
LOC: LAB 13:27
PROVIDERS: ATTEND Physician Assistant
DX: Z51.81 Encounter for therapeutic drug level monitoring (principal); Z79.01 Long term (current) use of anticoagulants
CPT/HCPCS: 36415; 85027; 85610

== ENCOUNTER 2017-07-03 12:46 | Outpatient (CLI) ==
[2017-07-03 13:10] LABS: HEMOGLOBIN 14.6 g/dl (12.0-16.0); MEAN CORPUSCULAR HEMOGLOBIN 31.9 pg (27.0-31.0); MEAN CORPUSCULAR HGB CONC 34.8 (31.8-35.4); MEAN CORPUSCULAR VOLUME 91.7 fl (81.0-99.0); RED BLOOD COUNT 4.58 10^6/ul (4.20-5.40); WHITE BLOOD COUNT 9.04 K/ul (4.6-10.2)
[2017-07-03 13:22] LABS: PROTHROMBIN TIME 18.3 SEC (9.3-11.0)
== END 2017-07-03 12:47 | disposition home or self-care (01) ==
LOC: LAB 12:46
PROVIDERS: ATTEND Physician Assistant
DX: Z51.81 Encounter for therapeutic drug level monitoring (principal); Z79.01 Long term (current) use of anticoagulants
CPT/HCPCS: 36415; 85025; 85027; 85610

== ENCOUNTER 2017-07-10 12:55 | Outpatient (CLI) ==
[2017-07-10 13:57] LABS: PROTHROMBIN TIME 26.2 SEC (9.3-11.0)
== END 2017-07-10 12:56 | disposition home or self-care (01) ==
LOC: LAB 12:55
PROVIDERS: ATTEND Physician Assistant
DX: Z51.81 Encounter for therapeutic drug level monitoring (principal); Z79.01 Long term (current) use of anticoagulants
CPT/HCPCS: 36415; 85610

== ENCOUNTER 2017-07-17 13:21 | Outpatient (CLI) ==
[2017-07-17 13:55] LABS: PROTHROMBIN TIME 14.3 SEC (9.3-11.0)
== END 2017-07-17 13:22 | disposition home or self-care (01) ==
LOC: LAB 13:21
PROVIDERS: ATTEND Physician Assistant
DX: Z51.81 Encounter for therapeutic drug level monitoring (principal)
CPT/HCPCS: 36415; 85610

== ENCOUNTER 2017-07-24 12:35 | Outpatient (CLI) ==
[2017-07-24 13:41] LABS: PROTHROMBIN TIME 29.1 SEC (9.3-11.0)
--- NOTE | 2017-07-24 14:43 | CT ---
Exam: CT of the abdomen pelvis without intravenous contrast. Reason for exam: Abdominal distension. Comparison: 01/05/2017. FINDINGS: Image interpretation is limited by the lack of intravenous contrast administration. No pleural effusion, or focal consolidation in the partially imaged lung bases. No intra-abdominal free air or pelvic free fluid. The liver, gallbladder, spleen, pancreas, and adrenal glands appear grossly unremarkable within limit ations of a noncontrasted study. Atherosclerotic disease is seen within the aorta and distal arterial vasculature. No focal small bowel dilatation or transition point. The appendix is unremarkable. Similar appearing compression deformities are seen at T9, T11, and L1. My out to moderate disc and d egenerative disease is seen throughout the lumbar spine. There is a tiny only fat containing periumbilical hernia. Impression: 1. No acute inflammatory findings are seen within the abdomen or pelvis. 2. Similar appearing compression deformities in the thoracic and upper lumbar spine.
== END 2017-07-24 12:36 | disposition home or self-care (01) ==
LOC: RAD 12:35
PROVIDERS: ATTEND Physician Assistant
DX: Z51.81 Encounter for therapeutic drug level monitoring (principal); E55.9 Vitamin D deficiency, unspecified; R97.1 Elevated cancer antigen 125 [CA 125]; R14.0 Abdominal distension (gaseous); Z79.899 Other long term (current) drug therapy
CPT/HCPCS: 36415; 82306; 85610; 86304

== ENCOUNTER 2017-07-31 13:17 | Outpatient (CLI) ==
[2017-07-31 14:33] LABS: PROTHROMBIN TIME 42.1 SEC (9.3-11.0)
== END 2017-07-31 13:18 | disposition home or self-care (01) ==
LOC: LAB 13:17
PROVIDERS: ATTEND Physician Assistant
DX: Z51.81 Encounter for therapeutic drug level monitoring (principal); Z79.01 Long term (current) use of anticoagulants
CPT/HCPCS: 36415; 85610

== ENCOUNTER 2017-08-03 13:29 | Outpatient (CLI) | END 2017-08-03 13:30 | disposition home or self-care (01) | LOC: LAB 13:29 | PROVIDERS: ATTEND Physician Assistant | DX: Z51.81 Encounter for therapeutic drug level monitoring (principal); Z79.01 Long term (current) use of anticoagulants | CPT/HCPCS: 36415; 85610 ==

== ENCOUNTER 2017-08-06 13:40 | Outpatient (CLI) ==
[2017-08-06 14:16] LABS: PROTHROMBIN TIME 30.7 SEC (9.3-11.0)
== END 2017-08-06 13:41 | disposition home or self-care (01) ==
LOC: LAB 13:40
PROVIDERS: ATTEND Physician Assistant
DX: Z51.81 Encounter for therapeutic drug level monitoring (principal); Z79.01 Long term (current) use of anticoagulants
CPT/HCPCS: 36415; 85610

== ENCOUNTER 2017-08-09 12:30 | Outpatient (CLI) ==
[2017-08-09 13:05] LABS: PROTHROMBIN TIME 25.7 SEC (9.3-11.0)
== END 2017-08-09 12:31 | disposition home or self-care (01) ==
LOC: LAB 12:30
PROVIDERS: ATTEND Physician Assistant
DX: Z51.81 Encounter for therapeutic drug level monitoring (principal); Z79.01 Long term (current) use of anticoagulants
CPT/HCPCS: 36415; 85610

== ENCOUNTER 2017-08-14 08:12 | Outpatient (CLI) ==
--- NOTE | 2017-08-14 09:17 | US ---
EXAM: Ultrasound abdomen limited HISTORY: Abdominal distension COMPARISON: 06/27/2010 TECHNIQUE: Limited ultrasound abdomen right upper quadrant was performed FINDINGS: Visualized portion pancreas appears normal. Portions of the pancreas obscured secondary t o bowel gas shadowing. Liver normal in size. Liver diffusely increased in echogenicity. Main anibal l vein patent with normal direction of flow. Gallbladder fluid-filled without gallbladder wall thick ening, pericholecystic fluid, or shadowing gallstones. No biliary duct dilation with common bile nancy t measuring 0.5 cm. IMPRESSION: 1. Echogenic liver, consistent with hepatic steatosis and/or hepatic parenchymal disease. 2. Normal sonographic appearance of the gallbladder.
--- NOTE | 2017-08-14 09:24 | DI ---
EXAM: Thoracolumbar spine two-view HISTORY: Back pain COMPARISON: MRI 02/15/2017 TECHNIQUE: Two views thoracolumbar spine were performed FINDINGS: Moderate multilevel chronic discogenic degenerative disease and facet arthrosis. Moderate compression deformities of T9, T11, L1 appear grossly unchanged from MRI 02/15/2017. 3 mm retrolist hesis of L1 on L2 and 2 mm anterolisthesis L3 on L4. Atherosclerotic vascular calcification. IMPRESSION: 1. Moderate compression deformities of T9, T11, L1 appear grossly unchanged from MRI 02/15/2017. 2. Chronic degenerative changes.
== END 2017-08-14 08:13 | disposition home or self-care (01) ==
LOC: RAD 08:12
PROVIDERS: ATTEND Physician Assistant
DX: R14.0 Abdominal distension (gaseous) (principal); M54.9 Dorsalgia, unspecified; G89.29 Other chronic pain

== ENCOUNTER 2017-08-15 12:57 | Outpatient (CLI) ==
[2017-08-15 13:21] LABS: HEMATOCRIT 40.8 % (37.0-47.0); HEMOGLOBIN 14.2 g/dl (12.0-16.0); MEAN CORPUSCULAR HEMOGLOBIN 32.9 pg (27.0-31.0); MEAN CORPUSCULAR HGB CONC 34.8 (31.8-35.4); MEAN CORPUSCULAR VOLUME 94.7 fl (81.0-99.0); RED BLOOD COUNT 4.31 10^6/ul (4.20-5.40); WHITE BLOOD COUNT 9.19 K/ul (4.6-10.2)
[2017-08-15 13:38] LABS: ALBUMIN 3.2 g/dL (3.4-5.0); ALBUMIN/GLOBULIN RATIO 0.84; BILIRUBIN,TOTAL 0.3 mg/dL (0.00-1.20); BUN/CREATININE RATIO 20.73; CREATININE 0.82 mg/dL (0.60-1.30)
[2017-08-15 13:43] LABS: PROTHROMBIN TIME 28.5 SEC (9.3-11.0)
== END 2017-08-15 12:58 | disposition home or self-care (01) ==
LOC: LAB 12:57
PROVIDERS: ATTEND Physician Assistant
DX: Z51.81 Encounter for therapeutic drug level monitoring (principal); Z79.01 Long term (current) use of anticoagulants; R94.4 Abnormal results of kidney function studies
CPT/HCPCS: 36415; 80053; 85027; 85610

== ENCOUNTER 2017-08-21 12:50 | Outpatient (CLI) | END 2017-08-21 12:51 | disposition home or self-care (01) | LOC: LAB 12:50 | PROVIDERS: ATTEND Physician Assistant | DX: Z51.81 Encounter for therapeutic drug level monitoring (principal); Z79.01 Long term (current) use of anticoagulants | CPT/HCPCS: 36415; 85610 ==

== ENCOUNTER 2017-08-28 14:11 | Outpatient (CLI) | END 2017-08-28 14:12 | disposition home or self-care (01) | LOC: LAB 14:11 | PROVIDERS: ATTEND Physician Assistant | DX: Z51.81 Encounter for therapeutic drug level monitoring (principal); Z79.899 Other long term (current) drug therapy | CPT/HCPCS: 36415; 85610 ==

== ENCOUNTER 2017-09-07 14:23 | Outpatient (CLI) | END 2017-09-07 14:24 | disposition home or self-care (01) | LOC: LAB 14:23 | PROVIDERS: ATTEND Physician Assistant | DX: R93.2 Abnormal findings on diagnostic imaging of liver and biliary tract (principal); R14.0 Abdominal distension (gaseous); R53.82 Chronic fatigue, unspecified; R10.84 Generalized abdominal pain; R79.1 Abnormal coagulation profile; D68.4 Acquired coagulation factor deficiency; R79.9 Abnormal finding of blood chemistry, unspecified; Z51.81 Encounter for therapeutic drug level monitoring | CPT/HCPCS: 36415; 80048; 80074; 80076; 82390; 82728; 82977; 83516; 84443; 85610; 86038; 86376; 87522 ==

== ENCOUNTER 2017-09-10 14:11 | Outpatient (CLI) | END 2017-09-10 14:12 | disposition home or self-care (01) | LOC: LAB 14:11 | PROVIDERS: ATTEND Physician Assistant | DX: Z51.81 Encounter for therapeutic drug level monitoring (principal); Z79.01 Long term (current) use of anticoagulants | CPT/HCPCS: 36415; 85610 ==

== ENCOUNTER 2017-09-13 13:37 | Outpatient (CLI) | END 2017-09-13 13:38 | disposition home or self-care (01) | LOC: LAB 13:37 | PROVIDERS: ATTEND Physician Assistant | DX: Z51.81 Encounter for therapeutic drug level monitoring (principal); Z79.01 Long term (current) use of anticoagulants | CPT/HCPCS: 36415; 85610 ==

== ENCOUNTER 2017-09-18 07:39 | Outpatient (CLI) ==
--- NOTE | 2017-09-18 09:24 | CT ---
EXAM: CT abdomen with and without contrast HISTORY: Abnormal ultrasound of liver COMPARISON: Ultrasound 08/14/[address] 07/24/2017 TECHNIQUE: CT abdomen performed with and without intravenous contrast. Coronal and sagittal reforma tted images obtained. FINDINGS: Mild subsegmental atelectasis lung bases. No free air. No acute abnormalities of the bon es. Compression deformities of T9, at T11, and L1 appear unchanged. Subacute appearing nondisplaced fracture left L1 transverse process with sclerosis and callus formation, new from 07/24/2017. Heart normal in size. Liver appears normal. Gallbladder appears normal. Pancreas appears normal. Splee n appears normal. Adrenals appear normal. Area of right renal cortical scarring, likely relates to remote insult. No hydronephrosis or nephrolithiasis. Aorta normal in caliber. Mild atherosclerosis . No lymphadenopathy or ascites. Small fat-containing periumbilical hernia. Small hiatal hernia. Visualized bowel otherwise unremarkable. IMPRESSION: 1. Normal CT appearance of the liver. 2. No acute abnormality identified in the abdomen. 3. Small hiatal hernia. 4. Subacute appearing nondisplaced fracture left L1 transverse process with sclerosis and callus for mation, new from 07/24/2017. Several compression deformities appear unchanged.
== END 2017-09-18 07:40 | disposition home or self-care (01) ==
LOC: RAD 07:39
PROVIDERS: ATTEND Nurse Practitioner
DX: R93.2 Abnormal findings on diagnostic imaging of liver and biliary tract (principal); R14.0 Abdominal distension (gaseous)

== ENCOUNTER 2017-09-19 14:01 | Outpatient (CLI) | payer OTHER | END 2017-09-19 14:02 | disposition home or self-care (01) | LOC: LAB 14:01 | PROVIDERS: ATTEND Physician Assistant | DX: Z51.81 Encounter for therapeutic drug level monitoring (principal); Z79.01 Long term (current) use of anticoagulants | CPT/HCPCS: 36415; 85610 ==

== ENCOUNTER 2017-09-27 13:29 | Outpatient (CLI) | END 2017-09-27 13:30 | disposition home or self-care (01) | LOC: LAB 13:29 | PROVIDERS: ATTEND Physician Assistant | DX: Z51.81 Encounter for therapeutic drug level monitoring (principal); Z79.01 Long term (current) use of anticoagulants | CPT/HCPCS: 36415; 85610 ==

== ENCOUNTER 2017-10-04 13:34 | Outpatient (CLI) | payer OTHER | END 2017-10-04 13:35 | disposition home or self-care (01) | LOC: LAB 13:34 | PROVIDERS: ATTEND Physician Assistant | DX: Z51.81 Encounter for therapeutic drug level monitoring (principal); Z79.01 Long term (current) use of anticoagulants | CPT/HCPCS: 36415; 85610 ==

== ENCOUNTER 2017-10-11 15:16 | Outpatient (CLI) | END 2017-10-11 15:17 | disposition home or self-care (01) | LOC: LAB 15:16 | PROVIDERS: ATTEND Physician Assistant | DX: Z51.81 Encounter for therapeutic drug level monitoring (principal); Z79.01 Long term (current) use of anticoagulants | CPT/HCPCS: 36415; 85610 ==

== ENCOUNTER 2017-10-16 12:49 | Outpatient (CLI) | payer OTHER | END 2017-10-16 12:50 | disposition home or self-care (01) | LOC: CAR 12:49 | PROVIDERS: ATTEND Physician Assistant | DX: Z51.81 Encounter for therapeutic drug level monitoring (principal); Z79.01 Long term (current) use of anticoagulants; R00.0 Tachycardia, unspecified | CPT/HCPCS: 36415; 85610; 93005; 93010 ==

== ENCOUNTER 2017-10-23 16:28 | Outpatient (CLI) | END 2017-10-23 16:29 | disposition home or self-care (01) | LOC: LAB 16:28 | PROVIDERS: ATTEND Physician Assistant | DX: Z51.81 Encounter for therapeutic drug level monitoring (principal); Z79.01 Long term (current) use of anticoagulants | CPT/HCPCS: 36415; 85610 ==

== ENCOUNTER 2017-11-01 15:21 | Outpatient (CLI) | END 2017-11-01 15:22 | disposition home or self-care (01) | LOC: LAB 15:21 | PROVIDERS: ATTEND Physician Assistant | DX: Z51.81 Encounter for therapeutic drug level monitoring (principal); Z79.01 Long term (current) use of anticoagulants | CPT/HCPCS: 36415; 85027; 85610 ==

== ENCOUNTER 2017-11-08 14:14 | Outpatient (CLI) | END 2017-11-08 14:15 | disposition home or self-care (01) | LOC: LAB 14:14 | PROVIDERS: ATTEND Physician Assistant | DX: Z51.81 Encounter for therapeutic drug level monitoring (principal); Z79.01 Long term (current) use of anticoagulants | CPT/HCPCS: 36415; 85610 ==

== ENCOUNTER 2018-01-08 13:24 | Outpatient (CLI) | payer OTHER | END 2018-01-08 13:25 | disposition home or self-care (01) | LOC: LAB 13:24 | PROVIDERS: ATTEND Physician Assistant | DX: R00.0 Tachycardia, unspecified (principal); R73.03 Prediabetes; R04.0 Epistaxis | CPT/HCPCS: 36415; 80053; 83036; 84443; 85025 ==